=== PATIENT | female | born 1950 | race Caucasian/White ===

== ENCOUNTER 2022-09-16 15:27 | Emergency (ER) | payer MEDICAID, SELFPAY ==
--- NOTE | ~2022-09-16 | XR_ITS ---
EXAMINATION: XR ANKLE, LEFT CLINICAL INFORMATION: Wound. COMPARISON: None available. TECHNIQUE: AP, lateral, and mortise views of the left ankle. FINDINGS: Diffuse soft tissue swelling especially laterally. No convincing evidence for any definite deformity. No effusion. Calcaneal plantar spurring. Ankle mortise anatomic. XR/XR ankle LT min 3V IMPRESSION: Soft tissue swelling but no convincing evidence for any deformity. No definitive findings of osteomyelitis.
[2022-09-16 15:52] VITALS: BP 157/61; PULSE 88; RESP 18; TEMP 36.4; O2SAT 94; BMI 29.0
--- NOTE | 2022-09-16 15:52 | ED.GENADULT ---
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 She reports she does not believe she has a DVT due to she is taking her medications as prescribed. she reports she was seen at [facility] on 08/27/2022 and admitted until 09/01/2022 discharged with Augmentin and completed although 2 days ago she had returning increasing pain/redness with some chills and subjective fevers. She denies any fevers, chills, recent falls or trauma, shortness of breath or chest pain, paresthesias, extremity edema, redness spreading up the leg or any other symptoms complaints or concerns at this time. complaint: Wound to left ankle Onset (ago): month(s) (1) Related Data Previous Rx's Medication Instructions Recorded cephalexin 500 mg capsule 500 mg PO Q6H 10 days #40 caps 09/16/22 doxycycline monohydrate 100 mg 100 mg PO BID 10 days #20 tabs 09/16/22 tablet oxycodone 5 mg tablet 5 mg PO Q6H PRN pain #14 tabs 09/16/22 Allergies Allergy/AdvReac Type Severity Reaction Status Date / Time No Known Allergies Allergy Verified 09/16/22 16:00 Review of Systems Review of Systems: Constitutional : No Weight loss, No Fever, No Chills, No Night Sweats, No Fatigue, No Malaise ENT/Mouth : No Hearing loss, No Ear Pain, No Nasal Congestion, No Sinus Pain, No Hoarseness, No sore throat, No Rhinorrhea, No Swallowing Difficulty Eyes: No Eye Pain, No Swelling, No Redness, No Foreign Body, No Discharge, No Vision Changes Cardiovascular : No Chest Pain, No SOB, No Dyspnea on Exertion, No Orthopnea, No Edema, No Palpitations Respiratory : No Cough, No Sputum, No Wheezing, No Smoke Exposure, No Dyspnea Gastrointestinal : No Nausea, No Vomiting, No Diarrhea, No Constipation, No abdominal Pain, No Hematochezia, No Melena Genitourinary : no irregular bleeding, No Dysuria, No Urinary Frequency, No Hematuria, No Urinary Incontinence, No Urgency, No Flank Pain, No Urinary Flow Changes, No Hesitancy Musculoskeletal : + left ankle joint pain/swelling, No Myalgias Skin : + wound with surrounding erythema and TTP to left ankle, No additional Skin Lesions, No rash Neuro : No Weakness, No Numbness, No Paresthesias, No Loss of Consciousness, No Dizziness, No Headache Psych : No Anxiety/Panic, No Depression, No SI/HI/AH/VH, No Social Issues, Heme/Lymph: No Bruising, No Bleeding,No Lymphadenopathy Endocrine : No Polyuria, No Polydipsia, No Temperature Intolerance Yes all other systems are reviewed and are negative [facility] Past Medical History Attestation statement: The following information was validated with the patient. Source: old records reviewed and nursing notes reviewed Social History Social History Advance Directives: No Advance Directives Information Provided: No Physical Exam ED Vital Signs: Vital Signs - 24 hr 09/16/22 15:52 09/16/22 17:28 09/16/22 19:36 Temperature 97.6 F 98.9 F 97.7 F Pulse Rate 88 75 79 Respiratory Rate 18 16 18 Blood Pressure 157/61 H 158/73 H 151/71 H Pulse Oximetry 94 96 95 Oxygen Delivery Method Room Air Room Air Room Air BMI result Body Mass Index 29.0 vital signs have been reviewed as normal and appeared to be correct. Blood pressure normal. Heart rate normal. Respiration rate normal. Temperature normal. Oxygen saturation normal. Appearance: Alert. Oriented X3. No acute distress. Head: Normal external exam. Normocephalic. Atraumatic. No Hathaway signs noted. No raccoon eyes noted Eyes: PERRLA. EOMI. Conjunctiva and sclera normal. Eyelids normal. ENT: EAC normal. TM's Normal. No septal hematoma noted. No hemotympanum noted. Pharynx normal. Uvula midline. Moist mucous membranes. No lesions/ulcerations or masses noted on the tongue. Normal voice. No trismus noted. No drooling noted. No muffled voice noted. Neck: Normal inspection. Neck supple. FROM. No adenopathy. Thyroid Normal. No tracheal deviation noted. No crepitus is noted. No meningeal signs. No neck mass noted. No signs of trauma noted. CVS: Normal heart rate and rhythm. Heart sound normal. Pulses normal throughout. No murmurs/rales/gallops. Respiratory: No respiratory distress. Painless inspiration. Breath sounds normal. No wheezes/rales/rhonchi noted. Chest nontender. No crepitus is noted. No signs of trauma noted. No accessory muscle usage noted or decreased air movement noted. No signs of trauma. Abdomen: Soft and nontender. Bowel sounds normal in all 4 quadrants. No distention noted. No organomegaly noted. No visible injury noted. Back: No CVA tenderness. Full range of motion noted. Nontender. No signs of trauma. Patient neuro intact bilaterally and distally on all 4 extremities. Patient's reflexes intact bilaterally and distally on all 4 extremities. No rashes/lesion/induration/fluctuance or signs of infection noted. Skin: Skin warm and dry. Normal skin color. Normal skin turgor. to left lateral malleolus of the ankle patient has circular wound with mild surrounding erythema and soft tissue swelling with serosanguineous drainage. No streaking or fluctuance is noted. No foreign bodies. No additional rashes/lesions/lacerations noted. Extremities: No lower extremity edema. No calf tenderness is noted. Extremities exhibit normal range of motion and nontender. Neuro: Oriented X 3. No motor deficit. No sensory deficit. Reflexes normal. Normal steady gait. No focal neuro deficits noted. CN's II-XII intact bilaterally? Vascular: + radial pulses/+ 2 distal pedal pulses/+2 dorsalis pedis b/l. Normal cap refill. No cyanosis noted to upper extremity nails and lower extremity toes nails. Course Course Course Narrative: This is an RME: Additional HPI, ROS, PE not included below will be deferred to primary provider. Patient is a 71-year-old female presents emergency department reporting an ulcer to LLE; lateral malleolus x 1 month after ? scraping it on a bed frame. Was seen at [facility] for this, 08/27 - 09/01 discharged home with Augmentin which she has completed. 2 days ago with increased pain, no drainage, tactile fever yesterday? no chills. Plan: labs, placed in WR pending bed availability Reevaluation(s) Reevaluation #1: ROS: Denies Other rash sites; IVDA; h/o MRSA; FCS; Swollen glands; injury; Suspected FB; H/o Bites / Marine exposure; Discharge; Bleeding; Sig Pain; H/A; CP; Cough; Abd Pain; N/V/D; Swelling Not c/w DVT. Not c/w necrotizing fasciitis/ myositis/ arterial occlusion/ osteomyelitis/ compartment syndrome/ septic joint Patient with wound with possibly superimposed cellulitis. No streaking noted. No evidence of foreign bodies or abscess. There is no lower extremity edema. She has full range of motion of the joint. There is no Labs were obtained and patient's glucose at 344 repeat 241 otherwise all other labs are within normal limits. Patient negative for COVID. X-ray of left ankle negative for any acute processes. I did consider admission although patient workup is essentially negative. I will start her on doxycycline and Keflex and instructions to follow-up with PCP and wound clinic and to return if any new or worsening symptoms. Patient understands agrees with the plan Medications Administered Discontinued Medications Generic Name Dose Route Start Last Admin Trade Name Freq PRN Reason Stop Dose Admin Cephalexin HCl 500 mg 09/16/22 21:32 09/16/22 21:36 Cephalexin 500 Mg Capsule PO 09/16/22 21:33 500 mg ONCE ONE Administration Doxycycline Monohydrate 100 mg 09/16/22 21:32 09/16/22 21:40 Doxycycline Monohydrate 100 Mg Capsule PO 09/16/22 21:33 100 mg ONCE ONE Administration Ibuprofen 600 mg 09/16/22 19:40 09/16/22 19:44 Ibuprofen 600 Mg Tablet PO 09/16/22 19:41 600 mg ONCE ONE Administration Oxycodone HCl 5 mg 09/16/22 19:40 09/16/22 19:44 Oxycodone Hcl Immed Release 5 Mg Tablet PO 09/16/22 19:41 5 mg ONCE ONE Administration Medical Decision Making Medical Decision Making [facility] Narrative: see course Differential Diagnosis Differential Diagnoses: The differential diagnosis associated with the presentation includes see course Admission/Observation Consideration of admission/observation: Escalation of care including admission/observation considered Lab Data [facility] Lab Attestation statement: I reviewed the patient's lab results. 09/16/22 17:32 09/16/22 17:32 Labs: Lab Results 09/16/22 09/16/22 09/16/22 Range/Units 17:32 17:32 17:43 WBC 6.6 (4.8-10.8) X10*3/uL RBC 4.25 (4.20-5.50) X10*6/uL Hgb 13.0 (12.0-16.0) g/dl Hct 39.0 (37.0-47.0) % MCV 91.8 (80.0-98.0) fL MCH 30.6 (27.0-33.0) pg MCHC 33.3 (31.0-35.0) g/dl RDW 11.9 (11.0-16.0) % Plt Count 176 (160-400) X10*3/uL MPV 10.1 (9.4-12.3) fL Immature Gran % (Auto) 0.6 H (0.0-0.4) % Neut % (Auto) 62.3 (45-73) % Lymph % (Auto) 22.8 (20-40) % [place] % (Auto) 10.9 (2-11) % Eos % (Auto) 2.9 (0-4) % Baso % (Auto) 0.5 (0-2) % Lymph # (Auto) 1.5 (1.2-4.9) X10*3/uL [place] # (Auto) 0.7 (0.1-1.2) X10*3/uL Eos # (Auto) 0.2 (0.0-0.4) X10*3/uL Baso # (Auto) 0.0 (0.0-0.2) X10*3/uL Abs Immat Gran (auto) 0.04 H (0.00-0.03) X10*3/uL Absolute Neuts (auto) 4.1 (2.0-8.3) x10*3/uL Absolute Nucleated RBC 0.000 (0.0-0.012) X10*3/uL Nucleated RBC % (auto) 0.0 (0.0-0.2) /100WBC Sodium 138 (135-145) mmol/L Potassium 4.2 (3.3-5.1) mmol/L Chloride 103 (96-108) mmol/L Carbon Dioxide 27 (22-29) mmol/L Anion Gap 12 (12-20) BUN 15 (9-16) mg/dL Creatinine 1.03 (0.5-1.4) mg/dL Estim Creat Clear Calc 54.7 Estimated GFR 53 POC Glucose (60-115) mg/dL Random Glucose 344 H (60-115) mg/dL Calcium 9.6 (8.4-10.2) mg/dL COVID-19 (MARIE) Negative (Negative) COVID-19 Clin Com See Note 09/16/22 Range/Units 19:35 WBC (4.8-10.8) X10*3/uL RBC (4.20-5.50) X10*6/uL Hgb (12.0-16.0) g/dl Hct (37.0-47.0) % MCV (80.0-98.0) fL MCH (27.0-33.0) pg MCHC (31.0-35.0) g/dl RDW (11.0-16.0) % Plt Count (160-400) X10*3/uL MPV (9.4-12.3) fL Immature Gran % (Auto) (0.0-0.4) % Neut % (Auto) (45-73) % Lymph % (Auto) (20-40) % [place] % (Auto) (2-11) % Eos % (Auto) (0-4) % Baso % (Auto) (0-2) % Lymph # (Auto) (1.2-4.9) X10*3/uL [place] # (Auto) (0.1-1.2) X10*3/uL Eos # (Auto) (0.0-0.4) X10*3/uL Baso # (Auto) (0.0-0.2) X10*3/uL Abs Immat Gran (auto) (0.00-0.03) X10*3/uL Absolute Neuts (auto) (2.0-8.3) x10*3/uL Absolute Nucleated RBC (0.0-0.012) X10*3/uL Nucleated RBC % (auto) (0.0-0.2) /100WBC Sodium (135-145) mmol/L Potassium (3.3-5.1) mmol/L Chloride (96-108) mmol/L Carbon Dioxide (22-29) mmol/L Anion Gap (12-20) BUN (9-16) mg/dL Creatinine (0.5-1.4) mg/dL Estim Creat Clear Calc Estimated GFR POC Glucose 241 H (60-115) mg/dL Random Glucose (60-115) mg/dL Calcium (8.4-10.2) mg/dL COVID-19 (MARIE) (Negative) COVID-19 Clin Com Independent Interpretation I performed an independent interpretation of an: Plain X-Ray Interpretation: X-ray of left ankle reviewed by myself this is my independent interpretation agreeable with radiologist report Radiology Impression Discussion of test interpretation with radiology: I have reviewed the radiologist's reading. Radiologist Impression: FINDINGS: Diffuse soft tissue swelling especially laterally. No convincing evidence for any definite deformity. No effusion. Calcaneal plantar spurring. Ankle mortise anatomic.? XR/XR ankle LT min 3V IMPRESSION: Soft tissue swelling but no convincing evidence for any deformity. No definitive findings of osteomyelitis. External Record Review External record reviewed: Inpatient record, Office record, Outpatient record, Prior outpatient labs, Prior outpatient radiology, Primary care record and Outside ED record all prior labs/ imaging /EKG and notes are accessible in our system reviewed by myself Prescription Management I considered prescription management with: Pain Medication and Antibiotic Chronic Conditions Patient?s care impacted by: Diabetes, Hypertension and Other (dvt) Social Determinants Patient?s care significantly limited by Social Determinants of Health including: Low income and Other Social Determinant of Health Discharge Plan Discharge Clinical Impression: Open wound of left ankle, Cellulitis of left ankle, Acute hyperglycemia Patient Disposition: Home, Self-Care Instructions: Cellulitis (ED), Diabetic Hyperglycemia (ED), Acute Wounds (ED) Prescriptions: New doxycycline monohydrate 100 mg tablet 100 mg PO BID 10 Days Qty: 20 0RF cephalexin 500 mg capsule 500 mg PO Q6H 10 Days Qty: 40 0RF oxycodone 5 mg tablet 5 mg PO Q6H PRN (Reason: pain) Qty: 14 0RF Rx Instructions: Partial Fill upon patient request. Referrals: [facility] [Provider Group] ( call on Sunday to make a follow-up appointment) Interventions: ED Discharge Assessment Last Done: 09/16/22 21:43 Discharge Date/Time: 09/16/22 21:43 Print Language: Bulgarian
[2022-09-16 17:28] VITALS: BP 158/73; PULSE 75; RESP 16; TEMP 37.2; O2SAT 96
[2022-09-16 17:37] LABS: MANUAL DIFF FLAG NO
[2022-09-16 18:00] LABS: Anion Gap 12 (12-20); Blood Urea Nitrogen 15 mg/dL (9-16); Calcium 9.6 mg/dL (8.4-10.2); Carbon Dioxide 27 mmol/L (22-29); Chloride 103 mmol/L (96-108); Creatinine Clr Calc Pharmacy 54.7; Estimated Glomerular Filt Rate 53; Glucose Random 344 mg/dL (60-115); Potassium 4.2 mmol/L (3.3-5.1); Sodium 138 mmol/L (135-145)
[2022-09-16 18:01] LABS: COVID-19 Test Negative (Negative); IDNOW Serial# BCCEAD1C
--- OUTSIDE RECORDS SUMMARY | 2022-09-16 18:04 | XMS_ITS | Continuity of Care Document ---
Author Name Unknown Organization [facility] ter Address [address] [place] [id number] Care Team Providers Care Regrinder Name Role Phone Not on Staff, PCP Primary Care Physician Unavail able Encounter [facility] [place](s): 08/27/22 - 09/01/[address] [id number]- Encounter Diagnosis Diabetes(Final) - 08/27/22 Hyperglycemia(Final) - 08/27/22 Foot ulcer(Final) - 08/27/22 Discharge Disposition: A-D/C Home Attending Physician: Claudia ARCHER, Jose Admitting Physician: Jonathan Chaudhary MD Referring Physician: Not on Staff, Referring MD Allergies, Adverse Reactions, Alerts No Known Medication Allergies Medications Alcohol Pads See Instructions, # 200 each, Refills 5, Tot. Refills 5, Maintenance, use as directed for Type 1 Diabetes Mellitus, 08/31/22 16:29:00 EDT, Supply, 173, cm, 08/31/22 15:42:00 EDT, Height, 82.15, kg, 08/28/22 4:19:00 EDT, Dry Weight Start Date: 08/31/22 Stop Date: 02/27/23 Status: Ordered amoxicillin-clavulanate 875 mg-125 mg oral tablet = 875 mg, By Mouth, 2 times a day, for 3 days, with food or milk, # 6 tablet, 0 Refills, Acute 09/04/22 7:50:00 EDT, 09/01/22 7:50:00 EDT, Tablet, [facility], Partial fill upon patient request if the prescription is for a schedule II opi... Start Date: 09/01/22 Stop Date: 09/04/22 Status: Ordered baclofen 10 mg oral tablet 10 mg, 1, tablet, By Mouth, Daily, # 30 tablet, Refills 0, Tot. Refills 0, Maintenance, 08/29/22 12:27:00 EDT, Route to Pharmacy Electronically, [facility], Partial fill upon patient request if the prescription is for a schedule II opioi... Start Date: 08/29/22 Status: Ordered Eliquis 5 mg oral tablet 1 tablet = 5 mg, By Mouth, 2 times a day, # 60 tablet, 0 Refills, Maintenance, 08/29/22 12:26:00 EDT, Tablet, [facility], Partial fill upon patient request if the prescription is for a schedule II opioid drug., 173, cm, 08/29/22 7:17:00... Start Date: 08/29/22 Stop Date: 09/28/22 Status: Ordered Freestyle Lite Lancets See Instructions, # 200 each, Refills 5, Tot. Refills 5, Maintenance, Please use to check blood glucose 3 times daily with meals and once before bed. Diabetes (E11.9), 08/31/22 17:05:00 EDT, Supply, 173, cm, 08/31/22 15:42:00 EDT, Height, 82.15, kg... Start Date: 08/31/22 Stop Date: 02/27/23 Status: Ordered Freestyle Lite Monitor See Instructions, # 1 each, Refills 5, Tot. Refills 5, Maintenance, Please use to check blood glucose 3 times daily with meals and once before bed Diabetes (E11.9), 08/31/22 17:06:00 EDT, Supply, 173, cm, 08/31/22 15:42:00 EDT, Height, 82.15, kg, 0... Start Date: 08/31/22 Stop Date: 02/27/23 Status: Ordered Freestyle Lite Test Strips See Instructions, # 200 each, Maintenance, Please use to check blood glucose 3 times daily with meals and once before bed Diabetes (E11.9), 08/31/22 17:06:00 EDT, Supply, 173, cm, 08/31/22 15:42:00 EDT, Height, 82.15, kg, 08/28/22 4:19:00 EDT, Dry... Start Date: 08/31/22 Stop Date: 09/30/22 Status: Ordered Insulin Lispro KwikPen 100 units/mL injectable solution See Instructions, Give one subcutaneous injection prior to meals based on sliding scale as below: 150 - 199 2 units 200 - 249 4 units 250 - 299 6 units 300 - 349 8 units 350 - 399 10 units, # 10 mL, 0 Refills, Maintenance, 08/29/22... Start Date: 08/29/22 Status: Ordered Lantus Solostar Pen 100 units/mL subcutaneous solution = 25 units, Subcutaneous Injection, Daily at bedtime, # 15 mL, 0 Refills, Maintenance, 08/29/22 13:01:00 EDT, Solution, [facility], Partial fill upon patient request if the prescriptionis for a schedule II opioid drug., 173, cm, ... Start Date: 08/29/22 Status: Ordered metFORMIN 500 mg oral tablet 1 tablet = 500 mg, By Mouth, 2 times a day, # 60 tablet, 0 Refills, Maintenance, 08/29/22 12:26:00 EDT, Tablet, [facility], Partial fill upon patient request if the prescription is for a schedule II opioid drug., 173, cm, 08/29/22 7:17:0... Start Date: 08/29/22 Status: Ordered oxyCODONE 5 mg oral tablet 5 mg, Tablet, By Mouth, Every 4 hours, PRN for Pain , Severe, Routine, 08/27/22 23:54:00 EDT Start Date: 08/27/22 Stop Date: 09/01/22 Status: Discontinued Pen Craig, 31 G x 5 mm BD Ultra Fine III See Instructions, # 120 each, Refills 0, Tot. Refills 0, Maintenance, use four times daily with insulin Lantus and lispro for Type 2 Diabetes Mellitus (E11. 9), 08/29/22 13:02:00 EDT, Supply, 173, cm, 08/29/22 7:17:00 EDT, Height, 82.15, kg, 08/28/22... Start Date: 08/29/22 Stop Date: 09/28/22 Status: Ordered Problem List Condition Confirmation Course Effective Dates Status Health St atus Informant DVT, lower extremity, distal Confirmed Active Diabetes mellitus Confirmed Active Results Orders for Microbiology Reports Name Date Wound Superficial Culture W/ Gram Smear 08/28/22 Blood Culture 08/27/22 Blood Culture #2 08/27/22 Microbiology Reports TEST:Superficial Wound Culture STATUS:Auth (Verified) BODY SITE: SOURCE:SWAB1 COLLECTED DATE/TIME:08/28/22 12:10 AM Superficial Wound Culture SPECIMEN DESCRIPTION : SWAB ANKLE LT SPECIAL REQUESTS : NONE GRAM STAIN : NO CELLS SEEN 2+ GRAM NEGATIVE RODS CULTURE : 2+ ESCHERICHIA COLI This isolate was identified using Maldi-TOF system These AST results were performed on the Oxyrane UK ID and AST system REPORT STATUS : FINAL 08/30/2022 ORGANISM 2+ ESCHERICHIA COLI This isolate was identified using Maldi-TOF system These AST results were performed on the GFS ITcan ID and AST system METHOD MIN. INHIB. CONC. (MCG/ML) AMOXICILLIN/CLAVULAN SUSCEPTIBLE AMPICILLIN RESISTANT AMPICILLIN/SULBACTAM RESISTANT CEFAZOLIN SUSCEPTIBLE CEFEPIME SUSCEPTIBLE CEFTRIAXONE SUSCEPTIBLE CIPROFLOXACIN SUSCEPTIBLE ERTAPENEM SUSCEPTIBLE GENTAMICIN SUSCEPTIBLE LEVOFLOXACIN SUSCEPTIBLE MEROPENEM SUSCEPTIBLE PIPERACILLIN/TAZOBAC SUSCEPTIBLE TETRACYCLINE SUSCEPTIBLE TRIMETH/SULFAMETHOX RESISTANT TEST:Blood Culture, Second Order STATUS:Auth (Verified) BODY SITE: SOURCE:Blood COLLECTED DATE/TIME:08/27/22 8:29 PM Blood Culture, Second Order SPECIMEN DESCRIPTION : BLOOD NO SITE SPECIAL REQUESTS : NONE CULTURE : NO GROWTH 5 DAYS. REPORT STATUS : FINAL 09/01/2022 TEST:Blood Culture STATUS:Auth (Verified) BODY SITE: SOURCE:Blood COLLECTED DATE/TIME:08/27/22 8:15 PM Blood Culture SPECIMEN DESCRIPTION : BLOOD NO SITE SPECIAL REQUESTS : NONE CULTURE : NO GROWTH 5 DAYS. REPORT STATUS : FINAL 09/01/2022 Radiology Reports * Exam Date Time Procedure Performing Provider Status 08/29/22 10:01 AM US Doppler Ext Lower Venous Bilat Nori Vail; Auth (Verified) Notes: (US Doppler Ext Lower Venous Bilat) Reason For Exam: Pain/Tenderness Extremities RESULT: US Doppler Ext Lower Venous Bilat US Doppler Ext Lower Venous Bilat Reason: Pain and Tenderness of bilateral lower extremities; Clinical Question(s): Thrombosis. COMPARISON: None IMAGING TECHNIQUE: Ultrasound of the veins from the groin through the calf was performed using grayscale, color, and spectral Doppler ultrasound assessing for complete compressibility and normal flowcharacteristics. FINDINGS: RIGHT LOWER EXTREMITY: Common femoral vein: Patent. No thrombosis. Femoral vein: Patent. No thrombosis. Popliteal vein: Nonocclusive thrombus measuring 8.1 cm. Gastrocnemius veins: The visualized portions are patent without evidence of thrombosis. Peroneal veins: Nonocclusive thrombus measuring 6.1 cm in length. Posterior tibial veins: The visualized portions are patent without evidence of thrombosis. LEFT LOWER EXTREMITY: Common femoral vein: Patent. No thrombosis. Femoral vein: Nonocclusive thrombus measuring 2.2 cm in length. Popliteal vein: Patent. No thrombosis. Gastrocnemius veins: The visualized portions are patent without evidence of thrombosis. Peroneal veins: The visualized portions are patent without evidence of thrombosis. Posterior tibial veins: The visualized portions are patent without evidence of thrombosis. IMPRESSION: Nonocclusive thrombus in the right popliteal, right peroneal, and left femoral veins. Critical results communicated to Ashley MILNER) over Cortext at 10:[address] Fabian. I have personally reviewed the images and I agree with this report. WSN: [id number] Ordering Physician: Jojo Montoya Dictated By: Yani Fabian MD Dictated Date/Time: 08/29/22 10:35 a Reviewed By: Carrol Juarez MD Signed By: Carrol Juarez MD Signed Date/Time: 08/29/22 10:40 am Transcribed By: ELIO Transcribed Date/Time: 08/29/22 10:18 am * Exam Date Time Procedure Performing Provider Status 08/27/22 7:29 PM Ankle Min 3 Views Left Elise Jaramillo [facility] (Verified) Notes: (Ankle Min 3 Views Left) Reason For Exam: with Pain;Infection RESULT: Ankle Min 3 Views Left Examination: Left ankle performed on 08/27/2022. History: Hx of Present Illness: open area to left ankle, has not had insulin in 1 week; Reason: Infection; with Pain; Clinical Question(s): Osteomyelitis Findings: Frontal, oblique, and lateral views of the left ankle are submitted. The mortise is preserved. No fractures or dislocations are demonstrated. A soft tissue ulcer overlies the lateral malleolus. Impression: Soft tissue ulcer. There is no radiographic evidence of osteomyelitis. WSN: [id number] Ordering Physician: Joaquin Villalobos Dictated By: Tarah Heard MD Dictated Date/Time: 08/27/22 7:33 pm Reviewed By: Tarah Heard MD Signed By: Tarah eHard MD Signed Date/Time: 08/27/22 7:33 pm Transcribed By: ELIO Transcribed Date/Time: 08/27/22 7:32 pm Vital Signs Most recent to oldest [Reference Range]: 1 2 3 Height 173 cm (09/01/22 6:58 AM) 173 cm (08/31/22 11:13 PM) 173 cm (08/31/22 8:23 PM) Weight 82.15 kg (08/28/22 4:19 AM) Oxygen Saturation [94-100 %] 95 % (09/01/22 6:58 AM) 95 % (08/31/22 11:13 PM) 95 % (08/31/22 8:23 PM) Pulse Rate [55-90 bpm] 80 bpm (09/01/22 6:58 AM) 69 bpm (08/31/22 11:13 PM) 68 bpm (08/31/22 8:23 PM) Body Mass Index [18.5-24.99 kg/m2] 27.45 kg/m2 *H* (08/28/22 4:19 AM) Blood Pressure [90-138/55-84 mm Hg] 123/93mm Hg (09/01/22 6:58 AM) 135/72mm Hg (08/31/22 11:13 PM) 129/60mm Hg (08/31/22 8:23 PM) Respiratory Rate [16-30 br/min] 18 br/min (09/01/22 7:18 AM) 17 br/min (09/01/22 6:58 AM) 22 br/min (08/31/22 11:13 PM) Temperature [96.8-100.4 DegF] 98.2 DegF (09/01/22 6:58 AM) 98.2 DegF (08/31/22 11:13 PM) 98.1 DegF (08/31/22 8:23 PM) Mode of Delivery (Oxygen) Room air (09/01/22 6:58 AM) Room air (08/31/22 11:13 PM) Room air (08/31/22 8:23 PM) Blood pressure sites Arm, left (09/01/22 6:58 AM) Arm, right (08/31/22 11:13 PM) Arm, left (08/31/22 8:23 PM) Temperature Route Oral (09/01/22 6:58 AM) Oral (08/31/22 11:13 PM) Oral (08/31/22 8:23 PM) Dry Weight 82.15 kg (08/28/22 4:19 AM) 83 kg (08/27/22 11:21 PM) 83 kg (08/27/22 8:28 PM) Weight Obtained Via Standing scale (08/28/22 4:19 AM) Dry Weight Obtained Via Standing scale (08/28/22 4:19 AM) Standing scale (08/27/22 4:59 PM) Social History Social History Type Response Smoking Status Use: 4 or less cigar ettes(less than 1/4 pack)/day in last 30 days;Former smoker, quit more than 30 days ago; Other: Smoked regularly 1/2pk/day 10-15 years ago. Since then, smokes occassionally a cigarette once every couple of months; entered on: 08/27/22 Sex Admission evaluation note * Jojo Montoya DO: MODIFY, MODIFY, MODIFY, PERFORM, MODIFY Event Display: Admission Note Authored Date: Patient: ??KARISHMA HIGHTOWER ? Age:??71 Years?Sex:??Female?:??1950?? 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 Patient lives in [place], visiting??as her son??who lives in [place]??required emergency back surgery.?? Arrived on 08/02.?? Patient states??that because??she was was??rushing??on day of departure,??patient forgot to take her medications with her??and has been??not taking any of her meds si nce??08/02. Patient since has been??measuring her sugars??using??her nephew's blood glucose meter, and states that??her wegbn-ae-pxdr ranges have been??100- 200s.?? Patient states that??she noticed a??pinhole type of lesion on her??left??lateral ankle??about a week ago.?? She was worried about??anothe r??diabetic ulcer??so went to [facility]??bought an ndzf-cpe-hxrhxwe antibiotic cream, which she applied on the lesion after cleaning with hydrogen??peroxide.?? Patient noticed that??the lesion??became worse over the??next couple of days, and found??difficulty??walking due to pain??and had to use a cane to walk.?? Previously was walking??without difficulty??and support.?? Patient also noticed progressively??worsening leg swelling??bilaterally with tingling in??left foot. ??Denies dizziness,??vision changes,??chest pain, difficulty breathing,??abdominal pain,??weakness.?? Also endorses some vaginal itching and urinary frequency??for the past 2 weeks.?? No difficulty with bowel movements, lastbowel movement today. ?? In the ED, patient was mildly tachycardic to 94 and markedly hypertensive to 142/73, otherwise hemodynamically stable.?? Labs were significant for elevated POCs in the 300s, otherwise no abnormal findings.?? X-ray of left ankle showed a soft tissue ulcer however no evidence of soft tissue gas orother signs of osteomyelitis.?? Patient received Unasyn IV 3 g.?? Patient admitted for IV antibiotic therapy for diabetic ulcer. Review of Systems All ROS were reviewed and negative except for HPI Objective Vital Signs?? Temperature: 98.1 DegF (08/27/22 20:28:00) Temperature Route: Oral (08/27/22 20:28:00) Pulse Rate: 69 bpm (08/27/22 20:28:00) Respiratory Rate: 20 br/min (08/27/22 20:28:) Systolic Blood Pressure:??153 mm Hg??High (08/27/22::) Diastolic Blood Pressure: 72 mm Hg (08/27/22::) Blood pressure sites: Arm, left (08/27/22 20:28:) Mean Arterial Pressure: 99 mm Hg (08/27/22::) Pulse Pressure: 81 mm Hg (08/27/22::) Oxygen Saturation: 98 % (08/27/22::) Mode of Delivery (Oxygen): Room air (08/27/22::) ? Physical Exam Images L lateral malleolus ulcer? General: Well appearing, nondistressed. Ocular: EOMI, PERRLA. HEENT: No lymphadenopathy, moist oral mucosa Cardiac: +s1, +s2, no murmurs, rubs, or extra heart sounds. Respiratory: No rales or rhonci on auscultation, no cough or wheeze. GI: Nondistended, nontender, with active bowel sounds. no hepatosplenomegaly. Peripheral Vascular: 1+ pitting edema??in lower extremities bilaterally??left more than right.?? Mild calf tenderness bilaterally. ??Multiple??healed??chronic ulcers??noted.?? Tented, nonhealing lesion??on left anterior brenner??due to previous injury Psych: alert, appropriate Neuro: CN II-XII intact. 5/5 strength in upper and lower extremities.?? Intact sensation??in bilateral lower extremities. Skin: 1 cm??open lesion??with mild purulent base (see photo), no significant discharge or bleeding.??Moderate tenderness??to palpation around lesion. 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 ?? Left ankle??pain and swelling Left diabetic ulcer Uncontrolled diabetes Patient noticed??small lesions??about a week ago??that worsened??leading to difficulty walking??andsignificant pain. Has not taken her diabetic meds since 08/02??as patient is from [place]??and did not bring her meds. Exam shows??small??ulcer??with no significant discharge??or bleeding??although with purulent base.?? X-ray??negative for any??signs??concerning for??osteomyelitis??although cannot rule out. Low clinical suspicion for osteomyelitis. ?? Plan: - We will continue??antibiotics??with IV Vanco??q12h only given mild diabetic ulcer??and no??systemic signs - Follow-up??CRP - Follow-up blood cultures - Wound care consult - Continue home Lantus 25 units at bedtime - ISS - Yghuz-zq-qsvr checks before meals and at bedtime - Hypoglycemic emergency orders added ?? Bilateral??calf tenderness History of DVTs Patient with??history of??3 DVTs, most recent one 10 years ago per patient. Exam??remarkable for??mild??bilateral calf tenderness, although may be chronic. Home meds include apixaban 2.5 mg twice daily, however patient has not been taking this medication since??08/02. Patient without shortness of breath. ??Hemodynamically stable ?? Plan: - We will obtain Doppler of bilateral lower extremities??to rule out DVT - Continue??apixaban 2.5 mg??twice daily ?? Quality measures: CODE STATUS:??Full DVT prophylaxis:??Apixaban 2.5 mg twice daily Diet:??Diabetic ?? Jojo Montoya, DO Med-Peds PGY-2 Pager [phone] or Cortext ?? This patient was seen and discussed with attending physician Dr. Nickerson. Histories Allergies Allergies ?(Active and Proposed Allergies Only) No Known Medication Allergies? (Severity: Unknown severity, Onset: Unknown) ? Past Medical History/Problem List Active Problems??(2) Diabetes mellitus DVT, lower extremity, distal ? Past Surgical History No surgery history documented. ? Social History Alcohol Details:??Use: Current. ??Frequency: 1-2 times per month. ??Other: cocktail occassionally. Home/Environment Details:??Living situation: Home/Independent. ??Lives with: Spouse. ??Other: Lives in [place]. Substance Abuse Details:??Use: Never. Tobacco Details:??Use: 4 or less cigarettes(less than 1/4 pack)/day in last 30 days, Former smoker, quit more than 30 days ago. ??Other: Smoked regularly 1/2pk/day 10-15 years ago. Since then, smokes occassionally a cigarette once every couple of months. ? Family History Father: Diabetes mellitus ? Medications Home Medications apixaban (Eliquis 2.5 mg oral tablet)?1?tab(s)?2.5?Milligram?By Mouth?2 times a day Baclofen (baclofen 10 mg oral tablet)?10?Milligram?1?tablet?By Mouth?Daily Insulin Glargine (Lantus Inj)?25?unit(s)?Subcutaneous Injection?Daily at bedtime Metformin (metFORMIN 500 mg oral tablet)?1?tab(s)?500?Milligram?By Mouth?2 times a day ? Results Recent Labs BLOOD COUNT & DIFF WBC 6.6 k/mm3 ()?? 08/27/2022 18:33 RBC 4.73 m/mm3 ()?? 08/27/2022 18:33 Hgb 14.5 Gm/dL ()?? 08/27/2022 18:33 Hct 43.4 % ()?? 08/27/2022 18:33 MCV 91.8 femtoliters ()?? 08/27/2022 18:33 MCH 30.7 pg ()?? 08/27/2022 18:33 MCHC 33.4 g/dL ()?? 08/27/2022 18:33 Platelet Count 167 k/mm3 ()?? 08/27/2022 18:33 RDW-SD 39.8 femtoliters ()?? 08/27/2022 18:33 MPV 10.5 femtoliters ()?? 08/27/2022 18:33 Nucleated RBC (Automated) 0.0 #/100 WBC'S ()?? 08/27/2022 18:33 Abs. NRBC 0.0 k/mm3 ()?? 08/27/2022 18:33 Abs. Neut 3.4 k/mm3 ()?? 08/27/2022 18:33 Abs. Lymph 2.4 k/mm3 ()?? 08/27/2022 18:33 Abs. [place] 0.6 k/mm3 ()?? 08/27/2022 18:33 Abs. Eo 0.2 k/mm3 ()?? 08/27/2022 18:33 Abs. Baso 0.0 k/mm3 ()?? 08/27/2022 18:33 Neut % 51.9 % ()?? 08/27/2022 18:33 Lymph % 35.8 % ()?? 08/27/2022 18:33 [place] % 9.5 % ()?? 08/27/2022 18:33 Eos % 2.3 % ()?? 08/27/2022 18:33 Baso % 0.3 % ()?? 08/27/2022 18:33 Imm Gran 0.2 % ()?? 08/27/2022 18:33 Abs. Imm Gran 0.0 k/mm3 ()?? 08/27/2022 18:33 ?? CHEM GENERAL Sodium 138 mmol/L ()?? 08/27/2022 18:33 Potassium 4.3 mmol/L ()?? 08/27/2022 18:33 Chloride 101 mmol/L ()?? 08/27/2022 18:33 Bicarbonate Level 27 mmol/L ()?? 08/27/2022 18:33 Anion Gap 10 ()?? 08/27/2022 18:33 Glucose Level 351 mg/dL (High)?? 08/27/2022 18:33 Glucose, POC 328 mg/dL (High)?? 08/27/2022 18:14 BUN 19 mg/dL ()?? 08/27/2022 18:33 Creatinine-Blood 0.8 mg/dL ()?? 08/27/2022 18:33 Estimated GFR Creatinine 80 ML/MIN/1.73 M2 ()?? 08/27/2022 18:33 Calcium 9.4 mg/dL ()?? 08/27/2022 18:33 ?? HEME OTHER Hold Blue Top SPECIMEN DISCARDED AFTER 4 HOURS. ()?? 08/27/2022 18:33 ?? VIROLOGY COVID-19 by RT-PCR NEGATIVE ()?? 08/27/2022 21:10 ? * Sivakumar Nickerson MD: PERFORM Event Display: Admission Note Authored Date: [id number] ??Attending Attestation: I have seen and evaluated this patient.?? I have discussed the case and its management with the resident and agree with the findings and peterson documented in the resident's note.?? I?? will continue to provide care to this patient till 7 AMof the admitting date.? 71-year-old female with a past medical history of poorly controlled insulin- dependent diabetes mellitus, DVT who did come with a complaint of pain in the left ankle with some swelling.?? There is?? adiabetic foot ulcer on the left side.?? CRP is pending.?? We will change antibiotics to IV vancomycin because of some purulence at the base of ulcer and willfollow the swab?? from the wound.?? Suspicion for osteomyelitis is low for now we will get a wound care consult.?? Doppler of the lower extremity is pending to rule out DVT.?? She is not taking her medications recently. Hospital Progress note * Joqauin Murray: PERFORM Event Display: Progress Note Hospital Authored Date: [id number] Patient: ??KARISHMA HIGHTOWER ? Age:??71 Years?Sex:??Female?:??1950?? Subjective 71-year-old female admitted with diabetic foot ulcer, found DVTs bilaterally. ??Nonocclusive. ?? Chart, Labs, and Imaging reviewed. Patient Seen and examined at bedside. 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 Wound appears to be healing appropriately. ??She states her pain is significantly improved from her??presentation. Anticipate discharge within the next 24 hours??as her??sugars have remained??stable.? No CP, AP, [place], dizziness, lightheadedness, N/V/D, F/C No other new or acute concerns or complaints. Review of Systems A focused review of systems was completed and is otherwise negative aside from as stated above.?? Objective ?? Physical Exam Temperature?98.2 ?(15:43) Systolic Blood Pressure?120 ?(15:44) Diastolic Blood Pressure?No result Pulse?78 ?(15:44) SpO2?96 ?(15:44) Respiratory Rate?18 ?(15:43) ?? Constitutional: Awake, alert and oriented x4. NAD. Lying comfortably in bed. HEENT: Normocephalic. Atraumatic. PERRLA, EOMI. Respiratory: Clear to auscultation. No wheezing, rales or rhonchi. Speaking in full sentences comfortably on room Air. Cardiovascular: RRR. No murmurs, rubs or gallops. 2+ radial and pedal pulses. Gastrointestinal: Abdomen soft, non-tender, non-distended. + bowel sounds. Neurologic: Smooth, coordinated, and spontaneous movement of extremities. MSK: Uniform strength against resistance in BL UE and LE,??able to??sit upright. Skin: Left lower extremity diabetic ulcer,??currently dressed.?? Picture noted in clinical media. Extremities: No cyanosis or clubbing. No gross deformities. Normal range of motion. Psychiatric: appropriate mood and affect. Patient is cooperative during exam. Assessment/Plan Assessment: Ms. Darell Morgan is a 71-year-old female??with a past medical history of insulin-dependent diabetes, history of??multiple diabetic ulcers, lower extremity DVTs (most recently??10 years ago)??who presents to the emergency department??with diabetic left lower extremity ulcer, also found to have bilateral lower extremity DVTs. Culture from wound growing e. coli, changed from vancomycin to Unasyn for adequate coverage. She was also found to have a nonocclusive thrombus in the right popliteal, right peroneal, and left femoral veins. Her Eliquis has been increased to 5 mg BID, unclear why she was maintained on reduced dose. ?? Left LE diabetic ulcer Uncontrolled diabetes New wounds approximately 1 week prior to admission, likely developed in the setting of DVTs/worsening edema Exam shows??small??ulcer??with no significant discharge??or bleeding, culture growing e. coli X-ray??negative for any??signs??concerning for??osteomyelitis -Continued Unasyn. ??Begin Augmentin. - Follow wound culture, growing e. coli - Follow blood cultures, NGTD - Wound care (daily): Clean w/NS, thin layer z-guard to periwound edge, Iodosorb to wound bed, cover in DSD - Diabetic control as below, check HbA1c in AM ?? Bilateral LE DVTs Prior history of DVTs, most recent one ~10 years ago per patient, reports she has been taking Eliquis 2.5 mg BID ever since (never had dose reduction for maintenance) US showing nonocclusive thrombus in the right popliteal, right peroneal, and left femoral veins Not considered DOAC failure given she has been inadequately dosed - Increase Eliquis to 5 mg BID - Can consider repeat US as an outpatient ?? Type II DM Home regimen includes??Lantus 25 units??daily, SSI. Per external chart review she has been on Trulicity and Glipizide in the past as well 24 hour POC remains fairly labile - Continue Lantus 25 units at bedtime -Continue sliding scale at current rate - Hypoglycemic emergency measures - Diabetic diet -A1c of 12.0. ??Will need??follow-up??and diabetic education ?? Quality measures: Diet:??Diabetic DVT prophylaxis:??On Eliquis Code status:??Full code ?? OMN: IV antibiotics, wound culture, diabetic control Disposition: Home when medically ready. Anticipate tomorrow pending stable sugars and continued pain control. HCP: None listed *Given she has [place] health insurance, prior provider sent her prescriptions to the [facility] pharmacy to ensure she will have coverage at time of discharge, specifically for Eliquis and Insulin, she should only need to pay $4, she will likely need Lispro script updated if ongoing changes to sliding scale prior to discharge* * Rossy AMTAO, Joaquin Cedeño: PERFORM Event Display: Progress Note Hospital Authored Date: [id number] Patient: ??LOVE JACQUELYN KARISHMA ? Age:??71 Years?Sex:??Female?:??1950?? Subjective 71F??admitted with diabetic foot wound infection ?? Chart, Labs, and Imaging reviewed. Patient Seen and examined at bedside. 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 States she feels generally well today. Cultures returned from wound infection, appears susceptible to Augmentin, resistant to Unasyn. ??Antibiotics changed accordingly.?? No systemic symptoms currently. Pending continued clinical improvement, anticipate discharge within the next??24 to 48 hours. A1c is significantly elevated at 12.0,??patient will need diabetic education. ?? Currently, no CP, AP, [place], dizziness, lightheadedness, N/v/d, F/C. ??Does endorse mild??left lower extremity pain. ??However states this is improved significantly No other new or acute concerns or complaints. Review of Systems A focused review of systems was completed and is otherwise negative aside from as stated above.?? Objective ?? Physical Exam Temperature?97.8 ?(14:52) Systolic Blood Pressure?93 ?(14:52) Diastolic Blood Pressure?58 ?(14:52) Pulse?82 ?(14:52) SpO2?97 ?(14:52) Respiratory Rate?17 ?(14:52) ?? Constitutional: Awake, alert and oriented x4. NAD. Lying comfortably in bed. HEENT: Normocephalic. Atraumatic. PERRLA, EOMI. Respiratory: Clear to auscultation. No wheezing, rales or rhonchi. Speaking in full sentences comfortably on room Air. Cardiovascular: RRR. No murmurs, rubs or gallops. 2+ radial and pedal pulses. Gastrointestinal: Abdomen soft, non-tender, non-distended. + bowel sounds. Neurologic: Smooth, coordinated, and spontaneous movement of extremities. MSK: Uniform strength against resistance in BL UE and LE,??able to??sit upright. Skin: Left lower extremity diabetic ulcer,??currently dressed.?? Picture noted in clinical media. Extremities: No cyanosis or clubbing. No gross deformities. Normal range of motion. Psychiatric: appropriate mood and affect. Patient is cooperative during exam.?? Assessment/Plan Assessment: Ms. Darell Morgan is a 71-year-old female??with a past medical history of insulin-dependent diabetes, history of??multiple diabetic ulcers, lower extremity DVTs (most recently??10 years ago)??who presents to the emergency department??with diabetic left lower extremity ulcer, also found to have bilateral lower extremity DVTs. Culture from wound growing e. coli, changed from vancomycin to Unasyn for adequate coverage. She was also found to have a nonocclusive thrombus in the right popliteal, right peroneal, and left femoral veins. Her Eliquis has been increased to 5 mg BID, unclear why she was maintained on reduced dose. ? Left LE diabetic ulcer Uncontrolled diabetes New wounds approximately 1 week prior to admission, likely developed in the setting of DVTs/worsening edema Exam shows??small??ulcer??with no significant discharge??or bleeding, culture growing e. coli X-ray??negative for any??signs??concerning for??osteomyelitis -Continued Unasyn. ??Begin Augmentin. - Follow wound culture, growing e. coli - Follow blood cultures, NGTD - Wound care (daily): Clean w/NS, thin layer z-guard to periwound edge, Iodosorb to wound bed, cover in DSD - Diabetic control as below, check HbA1c in AM ? Bilateral LE DVTs Prior history of DVTs, most recent one ~10 years ago per patient, reports she has been taking Eliquis 2.5 mg BID ever since (never had dose reduction for maintenance) US showing nonocclusive thrombus in the right popliteal, right peroneal, and left femoral veins Not considered DOAC failure given she has been inadequately dosed - Increase Eliquis to 5 mg BID - Can consider repeat US as an outpatient ? Type II DM Home regimen includes??Lantus 25 units??daily, SSI. Per external chart review she has been on Trulicity and Glipizide in the past as well 24 hour POC remains fairly labile - Continue Lantus 25 units at bedtime -Continue sliding scale at current rate - Hypoglycemic emergency measures - Diabetic diet -A1c of 12.0. ??Will need??follow-up??and diabetic education ? Quality measures: Diet:??Diabetic DVT prophylaxis:??On Eliquis Code status:??Full code ?? OMN: IV antibiotics, wound culture, diabetic control Disposition: Home when medically ready HCP: None listed *Given she has [place] health insurance, prior provider sent her prescriptions to the [facility] pharmacy to ensure she will have coverage at time of discharge, specifically for Eliquis and Insulin, she should only need to pay $4, she will likely need Lispro script updated if ongoing changes to sliding scale prior to discharge* * Sumi Aguirre RN: PERFORM, SIGN, VERIFY Event Display: Progress Note Hospital Authored Date: Patient: KARISHMA HIGHTOWER Age: 71 years Sex: Female : 1950 Associated Diagnoses: None Author: Carla BALDWIN, Sumi Findings Evaluation patient a&ox3, resting comfortably in bed. complaints of pain, oxy and baclofen given. nausea discomfort came when switched to PO abx and took the med on an empty stomach, amita sadie and saltine crackers helped relieve the nausea. bed in locked lowest position, non skid socks on, call light in reach. patient stated understanding of how to use call light if needed anything, no further orders or complaints at this time. . Discharge Information Case Management Discharge Plan : Case Management Discharge Plan Data 08/27/2022 20:25 EDT Discharge Level of Care at Discharge Home/Residential/Foster Care Consult note * Celestine ROA, Jennifer Hall: PERFORM, MODIFY, MODIFY Event Display: Consultation Note Authored Date: [id number] Patient: ??KARISHMA HIGHTOWER ? Age:??71 Years?Sex:??Female?:??1950?? Chief Complaint left lateral ankle Reason for Consultation left lateral ankle History of Present Illness Pt is a 71 yr old female seen at the request of the medical service for evaluation of left lateral ankle. Pt was admitted on 08/27 for for left ankle ulcer with pain and swelling. Pt reports noticing pin-hole ulcer to left lateral ankle approximately 1 week ago that grew in size w/associated pain/swelling. Pt reports cleaning wound with hydrogen peroxide, applying OTC antibiotic ointment, and covering with dressing daily. Pt reports increased pain affecting her ability to walk despite wound care; rates pain 26/11. ?? PMH: insulin-dependent diabetes??with history of??multiple diabetic ulcers, DVT x3 ?? PSH: Denies hx of surgeries ?? Social hx:??+nicotine: smokes??1 cigarette every??few months. Occasional alcohol use: cocktails 1-2x/month. Denies hx of drug use ?? FMH: father: DM?? Review of Systems Constitutional:??Denies fever/chills. Eyes:??No vision changes ENT:??No hearing loss, sneezing, congestion, runny nose or sore throat. Respiratory:??No shortness of breath, cough. Cardiovascular:??No chest pain or palpitations. Gastrointestinal:??No anorexia, N/V/D, or abdominal pain. :??Denies??urinary incontinence Neurologic:??No headache, dizziness. Musculoskeletal:??See HPI Skin:??No rash or itching. See HPI Physical Exam Vitals & Measurements T:??97.8?F?? TMIN:??97.5?F?? TMAX:??98.2?F?? HR:??66??(Peripheral)?? RR:??18?? BP:??132/69?? SpO2:??94%?? WT:??82.15??kg?? Constitutional:??WD/WN female??in no distress. Mental Status:??Alert/oriented to person, place and time. Head: Normocephalic. Cardiac: irregular rhythm, +S1/S2. No murmur, rub, gallop. Respiratory: Unlabored breathing; on RA.??Lungs equal/clear to auscultation. Gastrointestinal: Abdomen soft, non-tender, +bowel sounds, rounded Neurologic: Moves all extremities x4 independently. Normal, coherent speech Skin: Warm, pink dry. No rashes or lesions. No petechiae or purpura.?? Musculoskeletal: No cyanosis or clubbing. Extremities:??faint dorsalis pedis pulses bilaterally; faint??posterior tibial pulses bilaterally. Slight pitting edema to left ankle and LLE. Small ulcer to left lateral malleolus measuring approximately 0.2 cm in diameter w/0.2 cm depth. Unable to visualize wound bed; covered w/biofilm slough fibrinous exudate. Erythema to surrounding area. +point tenderness Psychiatric:??Euthymic mood, normal affect. Normal thought content, normal judgment. Assessment/Plan Assessment:??Pt w/PMH for insulin-dependent diabetes??with history of??multiple diabetic ulcers, DVT x3 who presents w/1 week hx of ulcer to left malleolus w/increasing pain and swelling. Pt reports cleaning wound with hydrogen peroxide, applying OTC antibiotic ointment, and covering with dressing daily. Discussed treatment options including sharp debridement and wound care. Pt declines sharp debridement at this time; opts for chemical debridement and dressing changes. ?? Diabetes (E11.9):??Recommend tight glucose control and low carb diet ?? Diabetic ankle ulcer (E11.622):??Pt declines sharp debridement; see below for wound care orders -XR negative for osteomyelitis ?? 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 Pat dry. Apply thin layer z-guard to periwound edge. Apply Iodosorb to wound bed. Cover w/gauze and secure w/medipore tape. Change QD ?? Discharge Planning:??Recommend pt f/u with local wound care center upon discharge for wound/ulcer management. If referring to [facility], please??request through the [facility] list listed as a tab in the Inbox Summary section; select Wound Care - Scheduling to send a communication message requesting an appointment.? Please re-consult wound care MD/HAWK for deterioration in wound/skin status. ?? Pictures uploaded in log skidder ?? Thank you for allowing me to participate in the care of this patient,??I appreciate the opportunity to assist??in management. My assessment and??all recommendations??have been communicated??to the patient's primary team via this documentation. Please??feel free to reach out with any??concerns??or questions. ?? Problem List/Past Medical History Ongoing Diabetes mellitus DVT, lower extremity, distal Medications Inpatient acetaminophen 325 mg oral tablet, 650 mg, By Mouth, Every 6 hours, PRN baclofen 10 mg oral tablet, 10 mg, By Mouth, Daily, PRN Dextrose 50% Inj Syringe (25Gm), 12.5 Gm, IV Push Slowly, Every 20 minutes, PRN Dextrose 50% Inj Syringe (25Gm), 25 Gm, IV Push Slowly, Every 15 minutes, PRN Eliquis, 2.5 mg, By Mouth, 2 times a day Glucagon Inj, 1 mg, Intramuscular, Once, PRN Glucose Gel, 15 Gm, By Mouth, Every 20 minutes, PRN Glucose Gel, 30 Gm, By Mouth, Every 20 minutes, PRN Insulin LISPRO Sliding Scale, 2-10 units, Subcutaneous Injection, 3 times a day before meals Lantus Inj, 25 units= 0.25 mL, Subcutaneous Injection, Daily at bedtime NaCL 0.9% Flush, 3 mL, IV Push, Every 8 hours oxyCODONE 5 mg oral tablet, 2.5 mg, By Mouth, Every 6 hours, PRN Vancomycin IVPB, 1250 mg, 15 mg/kg, IVPB, Every 24 hours Home baclofen 10 mg oral tablet, 10 mg= 1 tablet, By Mouth, Daily Eliquis 2.5 mg oral tablet, 2.5 mg= 1 tablet, By Mouth, 2 times a day Lantus Inj, 25 units, Subcutaneous Injection, Daily at bedtime metFORMIN 500 mg oral tablet, 500 mg= 1 tablet, By Mouth, 2 times a day Allergies No Known Medication Allergies Social History Alcohol Use: Current. Frequency: 1-2 times per month. Other: cocktail occassionally. Home/Environment Living situation: Home/Independent. Lives with: Spouse. Other: Lives in [place]. Substance Abuse Use: Never. Tobacco Use: 4 or less cigarettes(less than 1/4 pack)/day in last 30 days, Former smoker, quit more than 30days ago. Other: Smoked regularly 1/2pk/day 10-15 years ago. Since then, smokes occassionally a cigarette once every couple of months. Family History Diabetes mellitus: Father. Images L lateral malleolus ulcer lt lateral ankle Note * Indy Saravia RN: PERFORM Event Display: Discharge/Transfer Note Hospital Authored Date: [id number] Nursing Discharge Note Entered On: 09/01/2022 16:32 EDT Performed On: 09/01/2022 16:31 EDT by Indy Saravia RN Nursing Discharge Note 2 Discharge Time : 09/01/2022 11:26 EDT Indy Saravia RN - 09/01/2022 16:34 EDT Discharge Level of Care at Discharge : Home/Residential/Foster Care Patient Left Unit Via : Wheelchair Patient Accompanied Off Unit with : Responsible adult, Other: STAFF DC Instructions Provided & Signed by Pt : Yes Patient Understands D/C Instructions : Yes Patient Instructions Discharge Signed : Yes Did Pt have Specialty Bed or Wound Vac : No Indy Saravia RN - 09/01/2022 16:31 EDT * Rossy AMTAO, Joaquin Cedeño: PERFORM Event Display: Discharge/Transfer Note Hospital Authored Date: [id number] Patient: ??KARISHMA HIGHTOWER ? Age:??71 Years?Sex:??Female?:??1950?? 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 _ Discharge Medications Amoxicillin-Clavulanate (amoxicillin-clavulanate 875 mg-125 mg oral tablet)?875?Milligram?By Mouth?2 times a day?for 3?Days?with food or milk apixaban (Eliquis 5 mg oral tablet)?1?tab(s)?5?Milligram?By Mouth?2 times a day?for 30?Days Baclofen (baclofen 10 mg oral tablet)?10?Milligram?1?tablet?By Mouth?Daily Durable Medical Equipment ([place], 31 G x 5 mm BD Ultra Fine III)?See Instructions?for 30?Days?use four times daily with insulin Lantus and lispro for Type 2 Diabetes Mellitus (E11. 9) Durable Medical Equipment (Alcohol Pads)?See Instructions?for 30?Days?use as directed for Type 1 Diabetes Mellitus Durable Medical Equipment (Freestyle Lite Lancets)?See Instructions?for 30?Days?Please use to check blood glucose 3 times daily with meals and once before bed.Diabetes (E11.9) Durable Medical Equipment (Freestyle Lite Monitor)?See Instructions?for 30?Days?Please use to check blood glucose 3 times daily with meals and once before bedDiabetes (E11.9) Durable Medical Equipment (Freestyle Lite Test Strips)?See Instructions?for 30?Days?Please use to check blood glucose 3 times daily with meals and once before bedDiabetes (E11.9) Insulin Glargine (Lantus Solostar Pen 100 units/mL subcutaneous solution)?25?unit(s)?Subcutaneous Injection?Daily at bedtime Insulin Lispro (Insulin Lispro KwikPen 100 units/mL injectable solution)?See Instructions?Give one subcutaneous injection prior to meals based on sliding scale as below: 150 - 199 ?? 2 units 200 - 249 ?? 4 units 250 - 299 ?? 6 units 300 - 349 ?? 8 units 350 - 399 ?? 10 units Metformin (metFORMIN 500 mg oral tablet)?1?tab(s)?500?Milligram?By Mouth?2 times a day ?? Medications Started Amoxicillin-Clavulanate (amoxicillin-clavulanate 875 mg-125 mg oral tablet)?875?Milligram?By Mouth?2 times a day?for 3?Days?with food or milk Durable Medical Equipment (Pen [place], 31 G x 5 mm BD Ultra Fine III)?See Instructions?for 30?Days?use four times daily with insulin Lantus and lispro for Type 2 Diabetes Mellitus (E11. 9) Durable Medical Equipment (Alcohol Pads)?See Instructions?for 30?Days?use as directed for Type 1 Diabetes Mellitus Durable Medical Equipment (Freestyle Lite Lancets)?See Instructions?for 30?Days?Please use to check blood glucose 3 times daily with meals and once before bed.Diabetes (E11.9) Durable Medical Equipment (Freestyle Lite Monitor)?See Instructions?for 30?Days?Please use to check blood glucose 3 times daily with meals and once before bedDiabetes (E11.9) Durable Medical Equipment (Freestyle Lite Test Strips)?See Instructions?for 30?Days?Please use to check blood glucose 3 times daily with meals and once before bedDiabetes (E11.9) Insulin Glargine (Lantus Solostar Pen 100 units/mL subcutaneous solution)?25?unit(s)?Subcutaneous Injection?Daily at bedtime Insulin Lispro (Insulin Lispro KwikPen 100 units/mL injectable solution)?See Instructions?Give one subcutaneous injection prior to meals based on sliding scale as below: 150 - 199 ?? 2 units 200 - 249 ?? 4 units 250 - 299 ?? 6 units 300 - 349 ?? 8 units 350 - 399 ?? 10 units Metformin (metFORMIN 500 mg oral tablet)?1?tab(s)?500?Milligram?By Mouth?2 times a day Medications Discontinued Patient was discontinued Doses Changed Apixaban dose changed from 2.5 mg??to 5 mg 2 times daily PCP Follow-Up/Heads-Up -Admitted to [facility] with diabetic foot ulcer -A1c noted to be 12.2 at the time of admission. -Insulin regimen adjusted accordingly -She is being prescribed with Augmentin for 3 more days to complete a full course of antibiotics.??Have provided diabetic counseling??and??strict??instructions regarding when to return to the hospital. -Imperative that this patient??follow-up with a provider??regarding control of her??diabetes??post discharge??given her significantly elevated A1c. Hospital Course 71-year-old female Hx insulin-dependent diabetes with history of multiple diabetic ulcers that havepreviously healed as well as prior history of multiple DVTs presented to the emergency department with an ulcer on her left lateral ankle with associated pain and swelling. Patient lives in [place] and left to visit her son for a family emergency. She arrived on 08/02. She reports that in her rash on the day of departure, she forgot to take her medications with her and has not been taking any of her antidiabetics since her departure. She does report using her son's glucometer with [id number] being in the 100s to 200s. Given concern for worsening pain and swelling of her left lower extremity, she presented to the ED for further evaluation. ?? While in the ED, mildly tachycardic to 94, hypertensive to 142/73. Otherwise hemodynamically stable. Labs significant for POC's in the 300s. Otherwise unremarkable. X-ray of left ankle showed some soft tissue ulcer however no gas or signs of osteomyelitis. Received Unasyn IV 3 g and was admitted for IV antibiotic therapy for diabetic foot ulcer. ?? While admitted, found to have bilateral nonocclusive DVTs, prompting increase in dosing of Eliquis.Additionally, she was evaluated by wound care. Hemoglobin A1c was noted to be 12.0. Her insulin management regimen was accordingly adjusted and sugars significantly improved. She has since remained hemodynamically stable with stable blood sugars. Given her ongoing medical stability, she is being dis charged today following inpatient management of diabetic foot wound with newfound nonocclusive DVTs. ?? Please see below for brief problem focused assessment and plan: ?? Left LE diabetic ulcer ??Uncontrolled diabetes ??New wounds approximately 1 week prior to admission, likely developed in the setting of DVTs/worsening edema ??Exam shows small ulcer with no significant discharge or bleeding, culture growing e. coli ??X-ray negative for any signs concerning for osteomyelitis ??-Continue Augmentin. ??- wound culture, growing e. coli ??- Follow blood cultures, NGTD ??- Wound care (daily): Clean w/NS, thin layer z-guard to periwound edge, Iodosorb to wound bed, cover in DSD ??- Diabetic control as below, check HbA1c in AM ?? Bilateral LE DVTs ??Prior history of DVTs, most recent one ~10 years ago per patient, reports she has been taking Eliquis 2.5 mg BID ever since (never had dose reduction for maintenance) ??US showing nonocclusive thrombus in the right popliteal, right peroneal, and left femoral veins ??Not considered DOAC failure given she has been inadequately dosed ??- Eliquis 5 mg BID ??- Can consider repeat US as an outpatient ?? Type II DM ??Home regimen includes Lantus 25 units daily, SSI. Per external chart review she has been on Trulicity and Glipizide in the past as well ??24 hour POC remains fairly labile ??- Continue Lantus 25 units at bedtime ??-Continue sliding scale at current rate ??-A1c of 12.2.??Provided diabetic education but would encourage further f/u ?? Objective . Physical Exam Temperature?98.2 ?(07:00) Systolic Blood Pressure?123 ?(07:00) Diastolic Blood Pressure?93 ?(07:00) Pulse?80 ?(07:00) SpO2?95 ?(07:00) Respiratory Rate?17 ?(07:00) ?? Constitutional: Awake, alert and oriented x4. NAD. Lying comfortably in bed. HEENT: Normocephalic. Atraumatic. PERRLA, EOMI. Respiratory: Clear to auscultation. No wheezing, rales or rhonchi. Speaking in full sentences comfortably on room Air. Cardiovascular: RRR. No murmurs, rubs or gallops. 2+ radial and pedal pulses. Gastrointestinal: Abdomen soft, non-tender, non-distended. + bowel sounds. Neurologic: Smooth, coordinated, and spontaneous movement of extremities. MSK: Uniform strength against resistance in BL UE and LE,??able to??sit upright. Skin: Left lower extremity diabetic ulcer,??currently dressed.?? Picture noted in clinical media. Extremities: No cyanosis or clubbing. No gross deformities. Normal range of motion. Psychiatric: appropriate mood and affect. Patient is cooperative during exam. Follow-Up Appointments Added Follow Up ?Time Frame ?Comments Not on Staff, PCP?Within two weeks?Please follow up with your primary care provider within two weeks of discharge to discuss your recent hospital admission.?? Patient Instructions Diabetic Foot Ulcer:??You were admitted??for a??wound on your left ankle??that is likely??not healing due to??your diabetes.?? This is known as a diabetic foot ulcer.?? Occasionally,??diabetic foot ulcers may become infected. ??With this occurs, antibiotics are the mainstay of treatment. ??Even placed on antibiotic medication.?? On your discharge, you will complete 3 more days of antibiotics to complete a full course. ?? Deep vein thrombosis: You were noted to have a blood clot in your leg. ??This is known as a deep vein thrombosis.?? Management for this??involves anticoagulation medications such as the Eliquis you are currently taking. ??Your dose has been increased??to 5 mg??twice daily.?? If you notice any uncontrolled bleeding, please stop taking this medication and contact your provider??and present to the emergency department for further evaluation ?? You may??follow-up with an ultrasound??outpatient for further??monitoring ?? Diabetes: You were recently treated for elevated blood sugar levels, commonly known as Diabetes. Diabetes is a complex condition in which??insulin (a compound that works to aid??in storage of sugar)??is eithernot produced??or not effective.?? As a result,??sugar??builds up??within your blood.?? If uncontrolled,??this can lead to a wide variety of symptoms. ??Some of the symptoms may include??changes to your vision,??poor function of your kidneys,??sensations of??numbness or tingling??in your hands and feet,??wounds that do not heal properly,??nausea and vomiting,??and??heart disease.?? For this reason, it is very important??to adequately control??levels of blood sugar.?? This requires??administration of additional insulin,??close follow-up with a primary care doctor, and frequent specialist visits.?? When controlled,??most individuals can live in a very high functioning??manner??with little to no??noticeable impairment. Please see below??for important instructions regarding a post hospital care. -You are being prescribed??a medication called insulin lispro.?? This is??a rapid acting??insulin??designed??to decrease blood sugar levels particularly around mealtimes.?? It is important that this medication be taken??at the indicated dose??in conjunction with your meals.?? Taking too much of this medication??may cause??blood sugar levels to dip??too low??and lead to condition??called hypoglycemia??in which??individuals may experience changes in their mental status, feelings of??lethargy,??shaking, sweating, nervousness, and anxiety.?? Treatment for this typically requires glucose and frequent monitoring.?? If you feel you are??significantly hypoglycemic??and unable to manage your sugar??levels, please return to the ED. -You are also??being prescribed??a long-acting??insulin medication known as Lantus.?? This medication should be taken daily??and works??to maintain??a baseline control over your blood sugar.?? This medication can also lead to hypoglycemia,??and should be managed as stated directly above. -Your rapid acting insulin dose (lispro)??is based on a sliding scale dose. Please see your prescription for detailed instructions. -Your long-acting insulin dose (Lantus) is 25 Units nightly -Please??frequently inspect the bottom of your feet??as??it is common??for individuals with diabetes to develop??nonhealing wounds??of the feet. -It is important that you follow??with your primary care provider within 2 weeks of this??admission??to discuss??your recent hospital stay. -It is important that you follow-up within??educational program director (eye doctor)??annually -If you notice??that you are??producing more urine than usual,??or feeling??nauseous/vomiting,??please check your blood sugar.?? If elevated??please contact your provider for??further instructions. -If you notice??that you are??unable to eat or drink??due to nausea/vomiting,??unable to control your breathing,??or??feeling excessively??tired and unable to perform your activities of daily living??please return to the ED??for prompt evaluation??as this may be due to to elevated levels of sugar in your blood. Post Discharge Care Wound Care: Wound Site: left lateral ankle ??Clean w/NS. Pat dry. Apply thin layer z-guard to periwound edge. Apply Iodosorb to wound bed. Cover w/gauze and secure w/medipore tape ??every other day ??Yes Code Status: ?? Full Resuscitation Discharge ?09/01/22 9:05:00 EDT Discharge Prescriptions ?ePrescribed, ??09/01/22 9:05:00 EDT Home Health Face to Face ^HomeHealthFTF Results Imaging(s) ?Ankle Min 3 Views Left ?? 08/27/2022 19:29??by Tarah Heard MD ?Impression: ?? Soft tissue ulcer. There is no radiographic evidence of osteomyelitis. ?US Doppler Ext Lower Venous Bilat ?? 08/29/2022 10:01??by Carrol Juarez MD ?IMPRESSION: ?? Nonocclusive thrombus in the right popliteal, right peroneal, and left femoral veins. ? 38??minutes spent on discharge * Indy Saravia RN: PERFORM Event Display: Patient Education/Instruction Authored Date: [id number] Inpatient Adult Discharge Instructions [address] [id number] Name: KARISHMA MORGAN : 1950 Visit: 08/27/2022 21:12:00 Current Date: 09/01/2022 11:19 Account: [id number] Inpatient Adult Discharge Instructions We would like to thank you for allowing us to assist you with your healthcare needs. The following includes patient education materials and information regarding your injury/illness. Our entire staffstrives to provide an excellent experience for our patients and their families. PLEASE ENSURE YOU FOLLOW-UP PER THE INSTRUCTIONS BELOW! ?? YOUR OPINION IS IMPORTANT TO US! Please complete the survey you may receive by mail or email. Your feedback will be used to make improvements to the healthcare experiences of our patients and their families. Surveys are administered by [employer]. ?? If further treatment with your primary care physician or another doctor is recommended, it is important for you to keep the appointment. Call your primary care physician or return to the Emergency Department immediately if your condition worsens, fails to improve, or new symptoms develop. If you need to find a doctor, you can call [facility] for a referral at [phone] or toll free at [phone]) or log in to [email or web address].. ?? You can view and manage your care through the patient portal or by using a health care hawk of your choosing. [employer] is a website that allows you to securely view your medical information including your hospital discharge summary, office visit summaries, medications and follow-up visits. You can also request appointments, renew medications, and request access to your medical information using a health care hawk of your choosing, or just ask a question. You can enroll at [email or web address] or register during your next office visit. You have been discharged from [facility], Patient Care Unit: S3. If you have any questions regarding these instructions after you leave, please call us and we will be happy to assist you. 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 You may have had other tests and procedures not included in this list. Please discuss all test results with your provider. Basic Metabolic Panel BUN CBC CBC w/ Differential Comprehensive Metabolic Panel COVID-19 (Novel Coronavirus), Rapid PCR Creatinine CRP Electrolytes Glucose Level GLUCOSE POC Hemoglobin A1c, (Diagnostic) Hold Blue Top Tube HOLD LAVENDER TUBE Lipid Panel Magnesium Level Phosphorus Level Doppler Venous Ext Lower Bilat (US) XR Ankle Min 3 Views Left Primary Care Provider Not on Staff, PCP Advance Directive Health Care Proxy on File No Patient refuses to discuss Discharge Vitals Temperature: 98.2 DegF Height: 173 cm Pulse Rate: 80 bpm Weight: 82.15 kg Respiratory Rate: 18 br/min Body Mass Index:??27.45 kg/m2??High Systolic Blood Pressure: 123 mm Hg Body surface area: 1.99 Diastolic Blood Pressure:??93 mm Hg??High ?? Oxygen Saturation: 95 % ?? Studies Pending All tests and labs ordered during this hospital stay have been completed unless listed below. Please discuss all pending results with your provider listed above in these instructions. ?? Blood Culture Blood Culture #2 What to do next Instructions From Your Doctor Diabetic Foot Ulcer:??You were admitted??for a??wound on your left ankle??that is likely??not healing due to??your diabetes.?? This is known as a diabetic foot ulcer.?? Occasionally,??diabetic foot ulcers may become infected. ??With this occurs, antibiotics are the mainstay of treatment. ??Even placed on antibiotic medication.?? On your discharge, you will complete 3 more days of antibiotics to complete a full course. ?? Deep vein thrombosis: You were noted to have a blood clot in your leg. ??This is known as a deep vein thrombosis.?? Management for this??involves anticoagulation medications such as the Eliquis you are currently taking. ??Your dose has been increased??to 5 mg??twice daily.?? If you notice any uncontrolled bleeding, please stop taking this medication and contact your provider??and present to the emergency department for further evaluation ?? You may??follow-up with an ultrasound??outpatient for further??monitoring ?? Diabetes: You were recently treated for elevated blood sugar levels, commonly known as Diabetes. Diabetes is a complex condition in which??insulin (a compound that works to aid??in storage of sugar)??is eithernot produced??or not effective.?? As a result,??sugar??builds up??within your blood.?? If uncontrolled,??this can lead to a wide variety of symptoms. ??Some of the symptoms may include??changes to your vision,??poor function of your kidneys,??sensations of??numbness or tingling??in your hands and feet,??wounds that do not heal properly,??nausea and vomiting,??and??heart disease.?? For this reason, it is very important??to adequately control??levels of blood sugar.?? This requires??administration of additional insulin,??close follow-up with a primary care doctor, and frequent specialist visits.?? When controlled,??most individuals can live in a very high functioning??manner??with little to no??noticeable impairment. Please see below??for important instructions regarding a post hospital care. -You are being prescribed??a medication called insulin lispro.?? This is??a rapid acting??insulin??designed??to decrease blood sugar levels particularly around mealtimes.?? It is important that this medication be taken??at the indicated dose??in conjunction with your meals.?? Taking too much of this medication??may cause??blood sugar levels to dip??too low??and lead to condition??called hypoglycemia??in which??individuals may experience changes in their mental status, feelings of??lethargy,??shaking, sweating, nervousness, and anxiety.?? Treatment for this typically requires glucose and frequent monitoring.?? If you feel you are??significantly hypoglycemic??and unable to manage your sugar??levels, please return to the ED. -You are also??being prescribed??a long-acting??insulin medication known as Lantus.?? This medication should be taken daily??and works??to maintain??a baseline control over your blood sugar.?? This medication can also lead to hypoglycemia,??and should be managed as stated directly above. -Your rapid acting insulin dose (lispro)??is based on a sliding scale dose. Please see your prescription for detailed instructions. -Your long-acting insulin dose (Lantus) is 25 Units nightly -Please??frequently inspect the bottom of your feet??as??it is common??for individuals with diabetes to develop??nonhealing wounds??of the feet. -It is important that you follow??with your primary care provider within 2 weeks of this??admission??to discuss??your recent hospital stay. -It is important that you follow-up within??educational program director (eye doctor)??annually -If you notice??that you are??producing more urine than usual,??or feeling??nauseous/vomiting,??please check your blood sugar.?? If elevated??please contact your provider for??further instructions. -If you notice??that you are??unable to eat or drink??due to nausea/vomiting,??unable to control your breathing,??or??feeling excessively??tired and unable to perform your activities of daily living??please return to the ED??for prompt evaluation??as this may be due to to elevated levels of sugar in your blood. Discharge Orders Wound Care:??Wound Site: left lateral ankle Clean w/NS. Pat dry. Apply thin layer z-guard to periwound edge. Apply Iodosorb to wound bed. Cover w/gauze and secure w/medipore tape every other day Yes Code Status:?? Full Resuscitation You Need to Schedule the Following Appointments Follow Up with??Not on Staff, PCP When:??Within Within two weeks Why: Please follow up with your primary care provider within two weeks of discharge to discuss yourrecent hospital admission.?? Discharge Medications KARISHMA HIGHTOWER :1950 Visit Date:08/27/2022 Medications: Please continue your medications until treatment is completed or stopped by your provider. Medications not listed below should be discontinued. Discuss any questions related to medications with your provider. What How Much When Instructions Next Dose New Amoxicillin-Clavulanate (amoxicillin-clavulanate 875 mg-125 mg oral tablet) 875 Milligram Oral Twice a day Duration: 3 Days with food or milk ?? Pickup at [facility] 3 9pm 09/01 New Durable Medical Equipment (Alcohol Pads) See instructions Duration: 30 Days Refills: 5 use as directed for Type 1 Diabetes Mellitus ?? Pickup at [facility] 3 see instructions New Durable Medical Equipment (Freestyle Lite Lancets) See instructions Duration: 30 Days Refills: 5 Please use to check blood glucose 3 times daily with meals and once before bed. ?? Diabetes (E11.9) ?? Pickup at [facility] Rx #[id number] see instructions New Durable Medical Equipment (Freestyle Lite Monitor) See instructions Duration: 30 Days Refills: 5 Please use to check blood glucose 3 times daily with meals and once before bed ?? Diabetes (E11.9) ?? Pickup at [facility] Rx #[id number] see instructions New Durable Medical Equipment (Freestyle Lite Test Strips) See instructions Duration: 30 Days Please use to check blood glucose 3 times daily with meals and once before bed ?? Diabetes (E11.9) ?? Pickup at [facility] Rx #[id number] see instructions New Durable Medical Equipment ([place], 31 G x 5 mm BD Ultra Fine III) See instructions Duration: 30 Days use four times daily with insulin Lantus and lispro for Type 2 Diabetes Mellitus (E11. 9) ?? Pickup at [facility] 3 see instructions New Insulin Lispro (Insulin Lispro KwikPen 100 units/ mL injectable solution) See instructions Give one subcutaneous injection prior to meals based on sliding scale as below: 150 - 199 ?? 2 units 200 - 249 ?? 4 units 250 - 299 ?? 6 units 300 - 349 ?? 8 units 350 - 399 ?? 10 units ?? Pickup at [facility] 3 see instructions Changed Insulin Glargine (Lantus Solostar Pen 100 units/ mL subcutaneous solution) 25 unit(s) Subcutaneous Injection Daily at Bedtime Pickup at [place] [address] 09/01 Changed apixaban (Eliquis 5 mg oral tablet) 1 tab(s) Oral Twice a day Duration: 30 Days Pickup at [place] [address] 09/01 Unchanged Baclofen (baclofen 10 mg oral tablet) 1 tab(s) Oral Daily Pickup at [place] [address] 9a09/02 Unchanged Metformin (metFORMIN 500 mg oral tablet) 1 tab(s) Oral Twice a day Pickup at [place] [address] 09/01 Pharmacy Information [facility] 3: [address], [place] [id number] [phone] [facility] Rx #[id number]: [address], [place] [id number] [phone] Test Results Below is a partial list of the most recent Laboratory test results done prior to this discharge. You may have had other tests and procedures not included in this list. Please discuss all test resultswith your provider. Est Creatinine Clearance - 58.91 mL/min (08/31/2022) Basic Metabolic Panel (09/01/2022) ???Sodium - 138 mmol/L???Potassium - 4.3 mmol/L???Chloride - 102 mmol/L???Bicarbonate Level - 30 mmol/L???Anion Gap - 6???Glucose Level - 292 mg/dL???BUN - 19 mg/dL???Creatinine-Blood - 0.9 mg/dL???Estimated GFR Creatinine - 71 ML/MIN/1.73 M2???Calcium - 8.7 mg/dL BUN (08/30/2022) ???BUN - 14 mg/dL CBC (08/31/2022) ???WBC - 6.8 k/mm3???RBC - 4.68 m/mm3???Hgb - 13.9 Gm/dL???Hct - 43.6 %???MCV - 93.2 femtoliters???MCH - 29.7 pg???MCHC - 31.9 g/dL???Platelet Count - 160 k/mm3???RDW-SD - 40.2 femtoliters???MPV - 10.0 femtoliters???Nucleated RBC (Automated) - 0.0 #/100 WBC'S???Abs. NRBC - 0.0 k/mm3 CBC w/ Differential (08/27/2022) ???WBC - 6.6 k/mm3???RBC - 4.73 m/mm3???Hgb - 14.5 Gm/dL???Hct - 43.4 %???MCV - 91.8 femtoliters???MCH - 30.7 pg???MCHC - 33.4 g/dL???Platelet Count - 167 k/mm3???RDW-SD - 39.8 femtoliters???MPV - 10.5 femtoliters???Nucleated RBC (Automated) - 0.0 #/100 WBC'S???Abs. NRBC - 0.0 k/mm3???Abs. Neut - 3.4 k/mm3???Abs. Lymph - 2.4 k/mm3???Abs. [place] - 0.6 k/mm3???Abs. Eo - 0.2 k/mm3???Abs. Baso - 0.0 k/mm3???Neut % - 51.9 %???Lymph % - 35.8 %???[place] % - 9.5 %???Eos % - 2.3 %???Baso % - 0.3 %???Imm Gran - 0.2 %???Abs. Imm Gran - 0.0 k/mm3 Comprehensive Metabolic Panel (08/28/2022) ???Sodium - 139 mmol/L???Potassium - 4.3 mmol/L???Chloride - 104 mmol/L???Bicarbonate Level - 26 mmol/L???Anion Gap - 9???Glucose Level - 183 mg/dL???BUN - 16 mg/dL???Creatinine-Blood - 0.8 mg/dL???Estimated GFR Creatinine - 79 ML/MIN/1.73 M2???Calcium - 8.7 mg/dL???Protein, Total - 5.9 Gm/dL???Albumin - 3.4 Gm/dL???AG Ratio - 1.4???Alkaline Phosphatase - 58 units/L???AST (SGOT) - 19 units/L???ALT (SGPT) - 9 units/L???Bilirubin, Total - 0.5 mg/dL COVID-19 (Novel Coronavirus), Rapid PCR (08/27/2022) ???COVID-19 by RT-PCR - NEGATIVE Creatinine (08/30/2022) ???Creatinine-Blood - 0.8 mg/dL???Estimated GFR Creatinine - 76 ML/MIN/1.73 M2 CRP (08/28/2022) ???C-Reactive Protein - 0.4 mg/dL Electrolytes (08/30/2022) ???Sodium - 142 mmol/L???Potassium - 4.0 mmol/L???Chloride - 103 mmol/L???Bicarbonate Level - 30 mmol/L???Anion Gap - 9 Glucose Level (08/30/2022) ???Glucose Level - 168 mg/dL GLUCOSE POC (09/01/2022) ???Glucose, POC - 174 mg/dL Hemoglobin A1c, (Diagnostic) (08/30/2022) ???Hemoglobin A1C (Monitoring) - 12.0 % Hold Blue Top Tube (08/27/2022) ???Hold Blue Top - SPECIMEN DISCARDED AFTER 4 HOURS. HOLD LAVENDER TUBE (09/01/2022) ???Hold Lavender Top - SPECIMEN DISCARDED AFTER 24 HOURS. Lipid Panel (08/30/2022) ???Cholesterol - 153 mg/dL???Triglycerides - 111 mg/dL???HDL Cholesterol - 44 mg/dL???LDL Cholesterol - 87 mg/dL???Non HDL Cholesterol - 109 mg/dL Magnesium Level (08/31/2022) ???Magnesium - 1.8 mg/dL Phosphorus Level (08/31/2022) ???Phosphorus - 3.4 mg/dL Allergies (NKA means No Known Allergies) No Known Medication Allergies Problems Active Problems??(2) Diabetes mellitus?? DVT, lower extremity, distal?? Education Materials Below is the list of Educational Leaflet Providered with your Discharge Instructions. Your Diabetes Foot Care Program?? Discharge Instructions for Diabetic Foot Pressure Injuries?? Valuables and Belongings I fully understand and agree that [facility] accepts no responsibility for all my personal property including clothing, toilet articles, radios, jewelry, dentures, hearing aids, rings, money, or any other property that is in my possession or is brought to me after admission. I understand certain valuables may be placed in a hospital safe for a short period of time. I understand that the hospital is not liable for loss or damage due to accident, fire, or other natural occurrence while said property is in the safe. I accept full responsibility for any personal property that I keep with me, and will not hold the hospital responsible in case of loss or disappearance. I acknowledge that i have been encouraged to send valuables and belongings home. ?? Review of Valuable and Belonging List: With patient Date for Pt to Sign Valuables/Belongings: 09/01/22 07:00:00 ?? Other Discharge Information ?? Wound Assessment?? Wound Assessment?? Wound Location I: Foot, right Wound Type I: Diabetic foot ulcer Wound I, Present on Admission: Yes ?? Case Management Discharge Plan?? Discharge Plan?? Discharge Level of Care at Discharge: Home/Residential/Foster Care ?? Pulmonary Rehab Status?? Pulmonary Rehab Discharge Status?? Respiratory Rate: 18 br/min ? Common Emergency Awareness Tips IS IT A STROKE? Act FAST and Check for these signs: FACE Does the face look uneven? ARM Does one arm drift down? SPEECH Does their speech sound strange? TIME Call at any sign of stroke ?? Heart Attack Signs Chest discomfort: Most heart attacks involve discomfort in the center of the chest and lasts more than a few minutes, or goes away and comes back. It can feel like uncomfortable pressure, squeezing, fullness or pain. Discomfort in upper body: Symptoms can include pain or discomfort in one or both arms, back, neck, jaw or stomach. Shortness of breath: With or without discomfort. Other signs: Breaking out in a cold sweat, nausea, or lightheaded. Remember, MINUTES DO MATTER. If you experience any of these heart attack warning signs, call to get immediate medical attention! ?? Smoking can increase your chances of developing chronic health problems and can cause harmful effects to other family members in your house. If you smoke, you are strongly encouraged to quit. Please call [facility] at [phone] or [phone] ([phone]) or log in to [email or web address] for referrals to smoking cessation programs. ?? 356 Suicide & Crisis Lifeline is available 04/09 if you or someone you know needs to find a reason to keep living. By calling 344 you'll be connected to a skilled, trained counselor at a crisis center in your area. INPATIENT DISCHARGE INSTRUCTIONS SIGNATURE PAGE KARISHMA HIGHTOWER Location:[facility] Registration Date and Time:08/27/2022 21:12 EDT Primary Care Physician: Not on Staff, PCP Attending Physician: Claudia ARCHER, Jose, KARISHMA SHARMA, have received the above patient education materials/instructions and have verbalized understanding. If ambulance or transport services are being used I further acknowledge being given a choice of service. ?? If you need to contact me, please call me at this number: . Patient/Aquatic Physiotherapist Name: Patient/Aquatic Physiotherapist Signature: Relationship to Patient: Witness Name/Signature: Date: * Indy Saravia RN: PERFORM Event Display: Patient Education Leaflets Authored Date: [id number] Your Diabetes Foot Care Program ?? [address] Your Diabetes Foot Care Program Every day you depend on your feet to keep you moving. But when you have diabetes, your feet need special care. Even a small foot problem can become very serious. So don???t take your feet for granted. Work with your diabetes healthcare team. They can help you protect your feet and keep them healthy. Assessing your feet An assessment helps your healthcare provider check the condition of your feet. The assessment includes a review of your diabetes history and overall health. It may also include a foot exam, X-rays, or other tests. These can help show problems beneath the skin that you can???t see or feel. ?? Health history You will be asked about your overall health and any history of foot problems. You???ll also discussyour diabetes history, such as if your blood sugar level has changed over time. It also includes questions about feelings of pain, tingling, pins and needles, or numbness. Your healthcare provider will also want to know if you have high blood pressure and heart or kidney disease. Or if you smoke.??Tell your provider about any past foot infections. Discuss all of the medicines (including [id number]), vitamins, supplements, or herbs you take. ?? Foot exam A foot exam checks the condition of different parts of your foot. First your skin and nails are checked for any signs of infection. Blood flow is checked by feeling for the pulses in each foot. You may also have tests to study the nerves in the foot. These include using a small wire (monofilament) to see how sensitive your feet are. Dry skin on your feet may be a sign of damage to nerves which control the moisture on your skin. Toenail fungal infections may lead to more serious bacterial infections. In certain cases, you will be asked to walk a short distance. This is done to check for bone, joint, and muscle problems. ?? Diagnostic tests If needed, your healthcare provider will suggest certain tests to learn more about your feet. Theseinclude: ??? Doppler tests. These measure blood flow in the feet and lower leg. ??? X-rays. These can show bone or joint problems. ??? Other imaging tests. These may include an MRI, bone scan, and CTscan. These can help show bone infections. ??? Other tests. These may include vascular tests. Thesetests study the blood flow in your feet and legs. This is done by comparing the blood pressures in your arm and ankle. You may also have nerve studies to learn how sensitive your feet are. ?? Creating a foot care program Based on the evaluation, your healthcare provider will create a foot care program for you. This maybe as simple as starting a daily self-care routine. And changing the types of shoes you wear. It may also include treating minor foot problems, such as a corn or blister. In some cases, surgery will be needed to treat an infection. Or to treat mechanical problems, such as claw toes and hammer toes. ?? Preventing problems When you have diabetes, it???s easier to prevent problems than to treat them later on. So see your healthcare team for regular checkups and foot care. Your healthcare team can also help you learn more about caring for your feet at home. For example, you may be told to not walk barefoot, even in your home. Or you may be told you need special footwear to protect your feet. ?? Have regular checkups Foot problems can happen quickly. So follow your healthcare team???s schedule for regular checkups.During office visits, take off your shoes and socks as soon as you get in the exam room. Ask your healthcare provider to check your feet for problems. This will make it easier to find and treat smallskin issues before they get worse. Regular checkups can also help keep track of the blood flow and feeling in your feet. You may have pain or lack of feeling in your feet (neuropathy). Then you'll need checkups more often. ?? Learn about self-care The more you know about diabetes and your feet, the easier it will be to prevent problems. Your healthcare team can teach you how to check your feet every day. And teach you to look for warning signs. They can also give you other foot care tips. Before your office visits, write down any foot care questions you have. During office visits, ask any questions you have. ?? Last Reviewed Date: 2021 ?? 2056-0706 [employer].. All rights reserved. This information is not intended as a substitute for professional medical care. Always follow your healthcare professional's instructions. ?? * Indy Saravia RN: PERFORM Event Display: Patient Education Leaflets Authored Date: [id number] Discharge Instructions for Diabetic Foot Pressure Injuries ?? 11530 Discharge Instructions for Diabetic Foot Pressure Injuries You have been diagnosed with??pressure injuries of the foot??related to diabetes. Diabetes is a disease that makes it very hard to control your blood sugar. One dangerous complication of diabetes is a higher risk of having serious foot problems. Diabetes can cause nerve damage. This means that you might not feel a sore on your foot. Even minor wounds can easily get infected when you have diabetes. If not treated, these infections can be life-threatening. Infections that settle in the bones can also spread all over your foot and leg. In some cases, amputation (removal) is needed. Your healthcare provider wants you to practice good diabetic foot care. This can help make sure that hot spots, small cracks, or sores are treated before they get infected. If you do have an infection, medicines may be prescribed. Follow the tips on this sheet to take better care of your feet. After surgery If you have had surgery, change your dressings as directed by your healthcare provider. This helps prevent infection. Regular wound care helps keep your foot free of infection and aids healing: ??? Wash your hands with soap and clean, running water for at least 20 seconds. ??? Put on disposable gloves if your foot is infected. ??? Gently remove the old dressing and discard it in a plastic bag. ??? Take off the gloves. ??? Wash your hands again. ??? Put on new gloves. ??? Clean and dress the wound as directed by your healthcare provider. ??? Put any used items or trash in a plastic bag before placing in a trash can. ??? Put sharp objects in a puncture-proof container (sharps box). ?? Daily foot check?? Here is what you can do: ??? Check your feet every day. Use a mirror to look at the bottom of your feet. Make sure you also check between your toes. This helps you to catch small skin changes before they get infected. Or before they turn into bigger problems, such as pressure sores. ??? Call your healthcare provider right away??if you find any problems. These include hot spots, red streaks, swelling, cracks, sores, injuries, blisters, or foreign objects in your foot. ??? Before putting on shoes, check the soles and insides. Check??for lux or splinters. Remove any you find. They could break the skin or put added pressure on your feet. ?? Foot care Wash your feet every day in warm water with mild soap. Suggestions include:? Wash your feet every day. Use water that is not hot (lukewarm) and mild soap. Wash between your toes. ??? Use a soft towel to dry your feet well. It is very important to dry well between your toes.??Pat feet gently. Don't rub. ??? Use a moisturizer to keep the skin smooth. This is very important for your heels. If??skin is cracked, talk with your healthcare provider. Ask how to treat it. Don't put lotion between your toes. This can lead to fungal infections.? Before putting on your shoes, check your socks. Make sure they are not bunched up. Also make sure they don't have folds or creases in them. Even little bumps from bunched socks can cause a serious foot wo und.??Think about wearing socks without seams. ??? Talk with your provider before treating calluses, corns, or bunions. Never treat them on your own. ??? To prevent ingrown toenails, cut toenails straight across.??Talk with your healthcare provider if you have trouble cutting your toenails. ??? Tryto keep your feet from getting too hot or too cold. ??? Stay away from rough surfaces. Or surfaces with sharp objects. ??? Don't soak your feet. This can make your skin dry. ??? Don't wear shoes thatare too tight or uncomfortable. Talk with your healthcare team if you need help finding shoes that fit well. Shoes made specifically for people living with diabetes are available. ??? Don't test bath water temperature with your feet if you have less feeling. Use your hands instead. ??? Never go barefoot, even in your house. ??? Set a time every day to check your feet for sores or pressure areas. Use a mirror to check the bottoms of your feet. ??? Follow your provider???s instructions about walking and other activity. There may be some restrictions depending on the condition of your feet. You may need special shoes or inserts. These help take the pressure off the ulcers.? Take all medicines exactly as directed. ?? Follow-Up Your healthcare provider will look at your feet on a regular basis. Your healthcare provider may refer you to a special wound-care center for treatment. ?? When to call your healthcare provider Call your healthcare provider if any of the following occur: ??? Fever of 100.4??F (38??C) or higher, or as directed by your healthcare provider? Redness, swelling, or pain in the foot, or surgical incision ??? New sores or areas of concern on your feet ??? Numbness or tingling in any part of your foot ??? Chills, light-headedness, or fainting ??? Drainage or bad smell from wounds, incision,or swollen areas ??? Incision breaks open or bleeds a lot ?? Last Reviewed Date: 2021 ?? [id number] [employer] All rights reserved. This information is not intended as a substitute for professional medical care. Always follow your healthcare professional's instructions. ?? Patient Care team information Care Team Personnel Name: Shon Gooden RN Position: [facility] RN Member Role: Primary Care Nurse Name: Not on Staff, PCP Position: [facility] Physician (General Medicine) Member Role: PCP Name: Indy Saravia RN Position: [facility] RN Member Role: Primary Care Nurse Name: Dulce CASTILLO Attending Position: [facility] ED Medicine Name: Yvonne Max RN Position: [facility] ED RN W/OE and Tasks Member Role: Patient Care Provider Care Team Related Persons Name: JOHN GIBBS
[2022-09-16 18:15] LABS: Basophils Percent Auto 0.5 % (0-2); Eosinophils Absolute Auto 0.2 X10*3/uL (0.0-0.4); Eosinophils Percent Auto 2.9 % (0-4); Imm Gran Abs Auto 0.04 X10*3/uL (0.00-0.03); Imm Gran Pct Auto 0.6 % (0.0-0.4); Lymphocytes Absolute Auto 1.5 X10*3/uL (1.2-4.9); Lymphocytes Percent Auto 22.8 % (20-40); Mean Corpuscular HGB Conc 33.3 g/dl (31.0-35.0); Mean Corpuscular Hemoglobin 30.6 pg (27.0-33.0); Mean Corpuscular Volume 91.8 fL (80.0-98.0); Mean Platelet Volume 10.1 fL (9.4-12.3); Monocytes Absolute Auto 0.7 X10*3/uL (0.1-1.2); Monocytes Percent Auto 10.9 % (2-11); Neutrophils Absolute Auto 4.1 x10*3/uL (2.0-8.3); Neutrophils Percent Auto 62.3 % (45-73); Platelet Count 176 X10*3/uL (160-400); Red Blood Count 4.25 X10*6/uL (4.20-5.50); Red Cell Distribution Width 11.9 % (11.0-16.0); White Blood Count 6.6 X10*3/uL (4.8-10.8)
[2022-09-16 19:36] VITALS: BP 151/71; PULSE 79; RESP 18; TEMP 36.5; O2SAT 95
[2022-09-16 19:41] LABS: Glucose, Whole Blood 241 mg/dL (60-115)
[2022-09-16] MEDS: Ibuprofen 600 MG TABLET PO (19:44)
[2022-09-16] MEDS: oxyCODONE HCl Immed Release 5 MG TABLET PO (19:44)
[2022-09-16] MEDS: cephALEXin 500 MG CAPSULE PO (21:36)
[2022-09-16] MEDS: Doxycycline Monohydrate 100 MG CAPSULE PO (21:40)
== END 2022-09-16 21:43 | disposition home or self-care (01) ==
PROVIDERS: Nurse Practitioner Family; Physician Assistant Medical; Emergency Provider Emergency Medicine
DX: S91.002A Unspecified open wound, left ankle, initial encounter (principal); W22.03XA Walked into furniture, initial encounter; L03.116 Cellulitis of left lower limb; R73.9 Hyperglycemia, unspecified; Z20.822 Contact with and (suspected) exposure to COVID-19; Z86.718 Personal history of other venous thrombosis and embolism; Z79.01 Long term (current) use of anticoagulants; Y93.9 Activity, unspecified; Y92.009 Unspecified place in unspecified non-institutional (private) residence as the place of occurrence of the external cause; Y99.9 Unspecified external cause status
CPT/HCPCS: 36415; 73610; 80048; 82947; 85025; 87635; 99283

== ENCOUNTER 2022-09-25 13:00 | Emergency (ER) | payer MEDICAID, SELFPAY ==
--- NOTE | ~2022-09-25 | US_ITS ---
EXAMINATION: US VENOUS ULTRASOUND WITH DOPPLER LOWER EXTREMITY, LEFT CLINICAL INFORMATION: Pain COMPARISON: None available. TECHNIQUE: Ultrasound of the deep veins is performed from the hip to the calf with compression sonography and color and pulse Doppler assessment. Spectral analysis with color-flow imaging is performed. FINDINGS: There is normal venous compression and respiratory variation and augmented flow in the visualized common femoral vein, superficial femoral vein, profunda femoral vein, popliteal vein. There is occlusive deep venous thrombus in the posterior tibial vein. The peroneal vein was not identified. There is no significant popliteal fossa cyst. US/US venous duplex LE IMPRESSION: There is occlusive deep venous thrombus in the posterior tibial vein. The peroneal vein was not identified, limiting evaluation. These critical results were discussed with LM Khoury by telephone at 09/25/2022 3:40 PM and it was ascertained that the content and urgency of the report was understood at the time of direct communication.
--- NOTE | 2022-09-25 13:21 | ED.LOWEXIN ---
HPI - Extremity Injury (Lower) General Chief Complaint: Extremity Problem Stated Complaint: l leg pain Time Seen by Provider: 09/25/22 19:18 Source: patient, RN notes reviewed and old records reviewed Mode of arrival: ambulatory Limitations: no limitations History of Present Illness HPI Narrative: 72-year-old female with past medical history significant for diabetes, DVT on Eliquis, presents for evaluation of left lateral ankle pain. Patient reports that she has had pain to this area on and off for over a month She was admitted to [facility] for 8 days last month She was seen here 9 days ago and given a prescription for doxycycline cephalexin She reports that she finished the antibiotics but has worsening pain to the area The patient is visiting from [place] and plans to return, therefore she does not have a primary doctor in the area Denies any fevers or chills She reports her min compliant with all of her prescriptions including her antibiotics and her anticoagulate Related Data Previous Rx's Medication Instructions Recorded cephalexin 500 mg capsule 500 mg PO Q6H 10 days #40 caps 09/16/22 doxycycline monohydrate 100 mg 100 mg PO BID 10 days #20 tabs 09/16/22 tablet oxycodone 5 mg tablet 5 mg PO Q6H PRN pain #14 tabs 09/16/22 oxycodone 5 mg tablet 5 mg PO Q6H PRN severe pain (scale 09/25/22 score 7-10) #14 tabs Allergies Allergy/AdvReac Type Severity Reaction Status Date / Time No Known Allergies Allergy Verified 09/16/22 16:00 Review of Systems Constitutional: Constitutional: Denies chills and Denies fever(s) Cardiovascular: Cardiovascular: Denies chest pain and Denies dyspnea Respiratory: Respiratory: Denies cough and Denies dyspnea Gastrointestinal: Gastrointestinal: Denies abdominal pain, Denies nausea and Denies vomiting Musculoskeletal: Musculoskeletal: Reports arthralgias and Reports joint swelling PMFSH Social History Social History Advance Directives: No Advance Directives Information Provided: No Physical Exam Vital Signs: Vital Signs: Last Vital Signs Temp 98.1 F 09/25/22 13:22 Pulse 63 09/25/22 19:12 Resp 18 09/25/22 19:12 BP 138/61 09/25/22 19:12 Pulse Ox 95 09/25/22 19:12 O2 Del Method Room Air 09/25/22 19:12 BMI result Body Mass Index 27.4 Const: General: healthy appearing, comfortable, no acute distress, alert and awake Nutritional Appearance: well nourished Orientation/consciousness: patient oriented x3 HEENT: Head: Yes normocephalic and Yes atraumatic Eyes: Eyelids: Yes eyelids normal Conjunctivae: conjunctivae normal Sclerae: sclerae normal Corneas: corneas normal Pupils: Equal, round and reactive pupils present EOM: EOMs intact bilaterally Neck: Neck: Yes full ROM Resp: Effort & Inspection: normal respiratory effort, able to speak in complete sentences and not labored Cardio: Rate: regular rate Rhythm: regular rhythm Skin: Other: In breakdown to the left lateral ankle that is very superficial. No deep wounds. There is some granulomatous changes with very faint erythema, no be frayed erythema, no fluctuance. The area is tender to palpation. There flex and invert/jayesh the left ankle General skin exam: elasticity normal Neuro: General: patient oriented x3 Cranial nerves: Yes Equal, round and reactive pupils present and Yes Bilaterally intact EOM present Cognition (Neuro): normal cognition Course Course Course Narrative: RME: 72yoF with a PMHx Sig for? DVT currently on Eliquis presenting to the ED c/o L ankle pain worsening over the past week. Patient was seen in our ED on 09/16 for similar sx and had negative workup, discharged on antibiotics which she reports compliance. Denies recent injury, fever/chills Appropriately healing wound to left ankle noted with faint erythema, diffusely tender to palpation. No fluctuance/induration or streaking Labs, venous duplex ultrasound ordered Full HPI, ROS and PE to be performed by primary ED provider. Reevaluation(s) Reevaluation #1: The patient also complaining of ?vaginal itching which is likely a candidal infection due to her multiple rounds of recent antibiotics. Will treat with 1 dose of Diflucan Time: 19:56 Medical Decision Making Medical Decision Making [facility] Narrative: 72-year-old female past medical history significant for diabetes, smoking history presents for evaluation of a chronic wound to her left lateral ankle. There is some mild erythema consistent with skin breakdown do not appreciate any acute cellulitis. I reviewed her recent workup which showed an x-ray that did not show any concern of osteolytic lesions or obvious acute osteomyelitis. Patient a DVT ultrasound today that showed a left occlusive DVT remove posterior tibial vein. This is consistent with the patient's known history of recent DVT. She also reports having had 2 DVTs in the right lower extremity. Patient has good DP and PT pulse line left, the entire foot is warm, well perfused. I do not have any suspicion for acute ischemic arterial occlusion at this time. The patient does not have any leukocytosis. The patient should follow with wound care. She appears to have a mild chronic wound. I will discharge the patient short course of oxycodone, but I do not feel that she needs additional antibiotics Differential Diagnosis Differential Diagnoses: The differential diagnosis associated with the presentation includes Stasis ulcer Chronic wound Cellulitis Osteomyelitis less likely DVT Ischemic limb Lab Data MDM Lab Attestation statement: I reviewed the patient's lab results. No leukocytosis a white count of only 4.2. No significant anemia. Platelet count just below normal at 159 K. sodium is normal at 138, potassium normal at 4.6. Chloride is normal at 102. CO2 is slightly elevated to 30 which is consistent the patient's known smoking history. She likely has mild COPD. Glucose is elevated to 307 but there is no evidence of DKA 09/25/22 13:50 09/25/22 13:50 Labs: Lab Results 09/25/22 09/25/22 09/25/22 Range/Units 13:50 13:50 13:50 WBC 4.2 L (4.8-10.8) X10*3/uL RBC 4.76 (4.20-5.50) X10*6/uL Hgb 14.2 (12.0-16.0) g/dl Hct 43.5 (37.0-47.0) % MCV 91.4 (80.0-98.0) fL MCH 29.8 (27.0-33.0) pg MCHC 32.6 (31.0-35.0) g/dl RDW 11.7 (11.0-16.0) % Plt Count 159 L (160-400) X10*3/uL MPV 9.7 (9.4-12.3) fL Immature Gran % (Auto) 0.2 (0.0-0.4) % Neut % (Auto) 47.9 (45-73) % Lymph % (Auto) 42.9 H (20-40) % [place] % (Auto) 7.6 (2-11) % Eos % (Auto) 1.2 (0-4) % Baso % (Auto) 0.2 (0-2) % Lymph # (Auto) 1.8 (1.2-4.9) X10*3/uL [place] # (Auto) 0.3 (0.1-1.2) X10*3/uL Eos # (Auto) 0.1 (0.0-0.4) X10*3/uL Baso # (Auto) 0.0 (0.0-0.2) X10*3/uL Abs Immat Gran (auto) 0.01 (0.00-0.03) X10*3/uL Absolute Neuts (auto) 2.0 (2.0-8.3) x10*3/uL Absolute Nucleated RBC 0.000 (0.0-0.012) X10*3/uL Nucleated RBC % (auto) 0.0 (0.0-0.2) /100WBC ESR 29 H (0-20) MM/HR Sodium 138 (135-145) mmol/L Potassium 4.6 (3.3-5.1) mmol/L Chloride 102 (96-108) mmol/L Carbon Dioxide 30 H (22-29) mmol/L Anion Gap 11 L (12-20) BUN 17 H (9-16) mg/dL Creatinine 0.86 (0.5-1.4) mg/dL Estim Creat Clear Calc 67.2 Estimated GFR > 60 Random Glucose 307 H (60-115) mg/dL Calcium 8.9 D (8.4-10.2) mg/dL C-Reactive Protein 0.49 (< or = 0.50) mg/dL Radiology Impression Discussion of test interpretation with radiology: I have reviewed the radiologist's reading. Radiologist Impression: Occlusive DVT of the left posterior tibial vein Discharge Plan Discharge Clinical Impression: Deep vein thrombosis of lower extremity, Venous stasis ulcer of ankle limited to breakdown of skin Patient Disposition: Home, Self-Care Instructions: Chronic Wounds (ED) Additional Instructions: You should follow-up with wound care at the number provided. I do not think you have any acute infections I think you have a poor healing wound due to your history of diabetes and smoking history which makes healing take more time You may use Tylenol as needed for pain Use oxycodone for more severe, breakthrough pain This may make you sleepy, do not drink alcohol or drive after taking it Follow-up with your primary doctor Prescriptions: New oxycodone 5 mg tablet 5 mg PO Q6H PRN (Reason: severe pain (scale score 7-10)) Qty: 14 0RF Rx Instructions: Partial Fill upon patient request. No Action doxycycline monohydrate 100 mg tablet 100 mg PO BID 10 Days Qty: 20 0RF cephalexin 500 mg capsule 500 mg PO Q6H 10 Days Qty: 40 0RF oxycodone 5 mg tablet 5 mg PO Q6H PRN (Reason: pain) Qty: 14 0RF Rx Instructions: Partial Fill upon patient request.
[2022-09-25 13:22] VITALS: BP 128/68; PULSE 65; RESP 18; TEMP 36.7; O2SAT 99; BMI 27.4
[2022-09-25 13:55] LABS: MANUAL DIFF FLAG NO
[2022-09-25 13:56] LABS: Basophils Percent Auto 0.2 % (0-2); Eosinophils Absolute Auto 0.1 X10*3/uL (0.0-0.4); Eosinophils Percent Auto 1.2 % (0-4); Hematocrit 43.5 % (37.0-47.0); Hemoglobin 14.2 g/dl (12.0-16.0); Imm Gran Abs Auto 0.01 X10*3/uL (0.00-0.03); Imm Gran Pct Auto 0.2 % (0.0-0.4); Lymphocytes Absolute Auto 1.8 X10*3/uL (1.2-4.9); Lymphocytes Percent Auto 42.9 % (20-40); Mean Corpuscular HGB Conc 32.6 g/dl (31.0-35.0); Mean Corpuscular Hemoglobin 29.8 pg (27.0-33.0); Mean Corpuscular Volume 91.4 fL (80.0-98.0); Mean Platelet Volume 9.7 fL (9.4-12.3); Monocytes Absolute Auto 0.3 X10*3/uL (0.1-1.2); Monocytes Percent Auto 7.6 % (2-11); Neutrophils Percent Auto 47.9 % (45-73); Platelet Count 159 X10*3/uL (160-400); Red Blood Count 4.76 X10*6/uL (4.20-5.50); Red Cell Distribution Width 11.7 % (11.0-16.0); White Blood Count 4.2 X10*3/uL (4.8-10.8)
[2022-09-25 14:18] LABS: Anion Gap 11 (12-20); Blood Urea Nitrogen 17 mg/dL (9-16); C Reactive Protein 0.49 mg/dL (< or = 0.50); Calcium 8.9 mg/dL (8.4-10.2); Carbon Dioxide 30 mmol/L (22-29); Chloride 102 mmol/L (96-108); Creatinine Clr Calc Pharmacy 67.2; Estimated Glomerular Filt Rate > 60; Glucose Random 307 mg/dL (60-115); Potassium 4.6 mmol/L (3.3-5.1); Sodium 138 mmol/L (135-145)
[2022-09-25 14:45] LABS: Erythrocyte Sedimentation Rate 29 MM/HR (0-20)
[2022-09-25 19:12] VITALS: BP 138/61; PULSE 63; RESP 18; O2SAT 95
[2022-09-25] MEDS: oxyCODONE HCl Immed Release 5 MG TABLET 10 MG PO (19:57)
[2022-09-25] MEDS: Fluconazole 150 MG TABLET PO (19:57)
== END 2022-09-25 20:09 | disposition home or self-care (01) ==
PROVIDERS: Physician Assistant; Emergency Provider Student in an Organized Health Care Education/Training Program; PCP Student in an Organized Health Care Education/Training Program
DX: I82.442 Acute embolism and thrombosis of left tibial vein (principal); I83.223 Varicose veins of left lower extremity with both ulcer of ankle and inflammation; L97.321 Non-pressure chronic ulcer of left ankle limited to breakdown of skin; E11.9 Type 2 diabetes mellitus without complications
CPT/HCPCS: 36415; 80048; 85025; 85652; 86140; 93971; 99284